=== PATIENT | female | born 1990 | race Caucasian/White ===

== ENCOUNTER 2024-09-10 16:13 | Observation (INO) | payer OTHER, SELFPAY ==
--- NOTE | ~2024-09-10 | US_ITS ---
EXAMINATION: US pelvic complete DATE: 09/10/2024 17:18 INDICATION: Low abdominal pain. TECHNIQUE: Multiple transabdominal and transvaginal sonographic images of the pelvis were obtained. COMPARISON: Ultrasound 08/19/2024 FINDINGS: TRANSABDOMINAL ULTRASOUND: The uterus measures 10.2 x 5.2 x 6.4 cm. TRANSVAGINAL ULTRASOUND: The endometrial complex measures 3.1 cm in thickness with internal vascular flow. There is thickening of the endocervical canal. The right ovary measures 2.7 x 3.2 x 2.1 cm. The left ovary measures 4.9 x 2.5 x 2.3 cm. There is normal vascular flow in the ovaries. There is no fr ee fluid in the pelvis. IMPRESSION: 1. Retained products of conception. Reviewed, dictated and finalized at location A. KEEPING MACHINE MECHANIC
--- NOTE | ~2024-09-10 | CT_ITS ---
EXAMINATION: CT abdomen pelvis w con DATE: 09/10/2024 23:50 INDICATION: lower abdominal pain, s/p 2 weeks miscarriage TECHNIQUE: Computed tomography (CT) of the abdomen and pelvis was performed with 100 mL Omnipaque-350 intravenous contrast. Automated exposure control and iterative reconstruction technique were employe d. The dose-length product was 1169.55 mGy-cm. COMPARISON: Pelvic ultrasound, same date; CT abdomen pelvis 09/11/2018. FINDINGS: Lower thorax: Dependent atelectasis. Liver: Subcentimeter right and left lobe hypodensity too small to characterize but most likely repres ent cysts or hemangiomas. Biliary/Gallbladder: Gallbladder is normal. No bile duct dilation. Pancreas: No mass or duct dilation. Spleen: Normal. Adrenals:No mass. Kidneys: No suspicious mass, obstructing stone, or hydronephrosis. GI tract: Mild distal esophageal and antral wall edema No small or large bowel dilation. Normal appen awa. Mesentery/Peritoneum: No ascites, mass, or free air. Retroperitoneum: No mass. Pelvis: Enlarged uterus. Distended endometrial cavity which contains slightly hyperdense nonenhancing fluid fluid (HU 40-50), with irregular hyperdense material measuring 2.3 x 4.6 cm, which may represe nt hypervascular tissue or extravasated contrast. Soft Tissues: Soft tissues and body wall unremarkable. Bones: No acute osseous finding. IMPRESSION: Mild esophagitis and antral gastritis. In concert with prior sonographic findings, there are likely retained products of conception, with ol d blood/clot in the endometrial cavity. Active hemorrhage is difficult to exclude, but considered les s likely if there is no clinical evidence of vaginal bleeding. Reviewed, dictated and finalized at location K. SIVE SPRAYER IMPRESSION: Mild esophagitis and antral gastritis. In concert with prior sonographic findings, there are likely retained products of conception, with old blood/clot in the endometrial cavity. Active hemorrhage is difficult to exclude, but considered less likely if there is no clinical ev idence of vaginal bleeding.
[2024-09-10 16:21] VITALS: BP 145/75; PULSE 102; RESP 20; TEMP 37; O2SAT 100
[2024-09-10 16:23] VITALS: PULSE 98
--- NOTE | 2024-09-10 16:23 | ED_ITS ---
HPI - Female Genitourinary General Chief complaint: Vaginal Bleeding <David Marie PA-C - Last Filed: 09/10/24 17:18> Stated complaint: miscarriage, heavy vaginal bleeding <David Marie PA-C - Last Filed: 09/10/24 17:18> Time Seen by Provider: 09/11/24 00:19 <David Marie PA-C - Last Filed: 09/10/24 17:18> Focused HPI: This is a 34-year-old female who presents to the ED for chief complaint of vaginal bleeding and abdominal cramping. She was diagnosed with miscarriage in early August by OB office, Dr. Reed. She was started on vaginal Cytotec. States that since 08/26/2024, she has had intermittent abdominal cramping and intermittent bleeding. Over the last couple of days she has had increased vaginal bleeding with clots. Denies fevers, chills, purulent vaginal discharge, vomiting, diarrhea. GENERAL: Well-appearing, well-nourished, and in no acute distress. HEAD: Normocephalic, atraumatic. CHEST: Clear to auscultation. No respiratory distress. HEART: Regular rate and rhythm. NEURO: Alert and oriented x3. Patient screened in triage and initial orders placed. Additional care and disposition to be based upon diagnostic testing and treatment. <David Marie PA-C - Last Filed: 09/10/24 17:18> Source: patient <David Marie PA-C - Last Filed: 09/10/24 17:18> Mode of arrival: ambulatory <David Marie PA-C - Last Filed: 09/10/24 17:18> Limitations: no limitations <AIDEN Poe Last Filed: 09/10/24 17:18> Related Data Home medications: Home Medications ?Medication ?Instructions ?Recorded ?Confirmed ?Last Taken ?Type cetirizine 10 mg tablet 10 mg PO DAILY 09/11/24 09/11/24 Unknown History fluticasone propionate 50 1 spray intranasal DAILY 09/11/24 09/11/24 Unknown History mcg/actuation nasal spray,suspension hydroxyzine HCl 25 mg tablet 25 mg PO Q8H PRN anxiety 09/11/24 09/11/24 Unknown History omeprazole 40 mg capsule,delayed 40 mg PO DAILY 09/11/24 09/11/24 Unknown History release sertraline 50 mg tablet 50 mg PO DAILY 09/11/24 09/11/24 Unknown History <David Marie PA-C - Last Filed: 09/10/24 17:18> Allergies/Adverse reactions: Allergies Allergy/AdvReac Type Severity Reaction Status Date / Time NKA Allergy Unknown Unknown Uncoded 09/10/24 16:17 <David Marie PA-C - Last Filed: 09/10/24 17:18> Review of Systems 2 Review of Systems: All systems reviewed & are unremarkable except as noted in HPI and below <Jessica Johnson APRN - Last Filed: 09/11/24 03:31> [facility] Social History Social History: Social History Smoking status: Never smoker Alcohol intake: never Substance use: never Do You Feel Safe in your Home?: Yes Lack of Transportation: No Lack of Food: Never True Current Housing: I Have Housing Concerned About Future Housing: No Difficulty Paying Gas/Electric Bills: No Difficulty Paying for Meds: No Currently Unemployed: No Education: Bachelor's Degree Difficulty w/ Childcare or Family Care: No Spiritual care concerns: No <David Marie PA-C - Last Filed: 09/10/24 17:18> Exam 2 Narrative: GENERAL: Well appearing, well-nourished, non-toxic, in no acute distress. HEAD: Normocephalic, atraumatic. NECK: Supple. No adenopathy, no masses. RESPIRATORY: Airway patent, respirations nonlabored. Clear to auscultation bilaterally, no rales, rhonchi, wheezing. CARDIOVASCULAR: Regular rate and rhythm without murmurs, rubs, or gallops. Peripheral pulses 2+ and equal bilaterally. ABDOMINAL: Soft, nontender, nondistended, no hepatosplenomegaly. Normoactive BS. MUSCULOSKELETAL: Moves all extremities. Strength/ROM intact without gross deformities. SKIN: Warm, dry, pallor. No rashes. NEURO: A&O X3. Speech clear. Cranial nerves II-XII grossly intact. Steady gait. No ataxic movements. PSYCHIATRIC: Appropriate mood and affect. Normal interaction. *: Upon vaginal speculum exam pt's vaginal canal has a large amount of pooling blood. <Jessica Johnson APRN - Last Filed: 09/11/24 03:31> Course CHIEF SECURITY OFFICER/PA Physician Supervision For this patient encounter, I reviewed the CHIEF SECURITY OFFICER or PA documentation, treatment plan, and medical decision making; and I had [id number] time with this patient. <Davis Gongora MD - Last Filed: 09/11/24 06:51> Vital Signs Vital signs: Vital Signs Temperature 98.6 F 09/10/24 16:21 Pulse Rate 102 H 09/10/24 16:21 Respiratory Rate 20 09/10/24 16:21 Blood Pressure 145/75 H 09/10/24 16:21 Pulse Oximetry 100 09/10/24 16:21 Oxygen Delivery Room Air 09/10/24 16:21 Temperature 98 F 09/11/24 05:36 Pulse Rate 75 09/11/24 05:36 Respiratory Rate 18 09/11/24 05:36 Blood Pressure 108/55 L 09/11/24 05:36 Pulse Oximetry 100 09/11/24 05:36 Oxygen Delivery Room Air 09/11/24 05:20 <David Marie PA-C - Last Filed: 09/10/24 17:18> Vital Signs Temperature 98.6 F 09/10/24 16:21 Pulse Rate 102 H 09/10/24 16:21 Respiratory Rate 20 09/10/24 16:21 Blood Pressure 145/75 H 09/10/24 16:21 Pulse Oximetry 100 09/10/24 16:21 Oxygen Delivery Room Air 09/10/24 16:21 Temperature 98 F 09/11/24 05:36 Pulse Rate 75 09/11/24 05:36 Respiratory Rate 18 09/11/24 05:36 Blood Pressure 108/55 L 09/11/24 05:36 Pulse Oximetry 100 09/11/24 05:36 Oxygen Delivery Room Air 09/11/24 05:20 <Davis Gongora MD - Last Filed: 09/11/24 06:51> Vital Signs Temperature 98.6 F 09/10/24 16:21 Pulse Rate 102 H 09/10/24 16:21 Respiratory Rate 20 09/10/24 16:21 Blood Pressure 145/75 H 09/10/24 16:21 Pulse Oximetry 100 09/10/24 16:21 Oxygen Delivery Room Air 09/10/24 16:21 Temperature 98 F 09/11/24 05:36 Pulse Rate 75 09/11/24 05:36 Respiratory Rate 18 09/11/24 05:36 Blood Pressure 108/55 L 09/11/24 05:36 Pulse Oximetry 100 09/11/24 05:36 Oxygen Delivery Room Air 09/11/24 05:20 <Jessica Johnson, ASSISTANT PROSECUTING ATTORNEY - Last Filed: 09/11/24 03:31> MDM - Female Genitourinary MDM Narrative Medical decision making narrative: This is a 34-year-old female who presents to the ED for chief complaint of vaginal bleeding and abdominal cramping. She was diagnosed with miscarriage in early August by OB office, Dr. Reed. She was started on vaginal Cytotec. States that since 08/26/2024, she has had intermittent abdominal cramping and intermittent bleeding. Over the last couple of days she has had increased vaginal bleeding with clots. Denies fevers, chills, purulent vaginal discharge, vomiting, diarrhea. Labs Ordered: CBC, CMP, CRP, Rh immune globulin, APTT, INR, lactic acid Imaging Ordered: pelvic ultrasound complete, CT abdomen pelvis with con Medications Ordered: 1 L normal saline IV bolus, Cytotec buccal 800 mcgs Results: Pt's pelvic US indicates Retained products of conception. Her CT abdomen/pelvis scan indicates Mild esophagitis and antral gastritis. In concert with prior sonographic findings, there are likely retained products of conception, with old blood clot in the endometrial cavity. Active hemorrhage is difficult to exclude, but considered less likely if there is no clinical evidence of vaginal bleeding. Diagnosis: vaginal bleeding, retained products of conception Consults: OBGYN (Dr. Reed) who advised pt be admitted to the hospital under observation status. Spoke with ACCOUNTS RECEIVABLE COLLECTOR floor who reported pt could be admitted under Dr. Reed's name. Dr. Reed requests pt have a repeat CBC be drawn in the morning. Pt is requesting nurses do a pad count. She would like pt to remain NPO, but would like her to receive Normal Saline 125/hour. Dr. Reed would also like pt to be given Cytotec 800mcg buccal x 1. Patient Education/Shared MDM: Results of labwork shared with patient. Provided results to pt that she would be admitted over night for monitoring and further evaluation in the morning. Pt verbalized understanding and is in agreement with plan. <Jessica Johnson APRN - Last Filed: 09/11/24 03:31> Differential Diagnosis Differential diagnosis: Likely urinary tract infection, cystitis, dysmenorrhea and other (threatened , retained products of conception, abnormal vaginal bleeding) <Jessica Johnson APRN - Last Filed: 09/11/24 03:31> Lab Data Attestation: I reviewed the patient's lab results. <Jessica Johnson APRN - Last Filed: 09/11/24 03:31> Result diagrams: 09/10/24 21:40 09/10/24 21:40 <David Marie PA-C - Last Filed: 09/10/24 17:18> Labs: Lab Results 09/10/24 09/11/24 Range/Units 21:40 00:34 WBC 8.1 (4.5-10.0) K/mm3 RBC 4.11 L (4.2-5.4) M/mm3 Hgb 11.7 L (12.0-15.0) g/dL Hct 35.1 L (37.0-47.0) % MCV 85.4 (80-100) fl MCH 28.5 (26-34) pg MCHC 33.3 (32-36) g/dl RDW 13.6 (11.5-14.5) % Plt Count 200 (150-375) k/mm3 MPV 9.9 (7.4-10.4) fl Immature Gran % (Auto) 0.2 (0-0.5) % Neut % (Auto) 64.2 (45.5-73.1) % Lymph % (Auto) 26.1 (18.3-44.2) % [place] % (Auto) 7.0 (2.6-8.5) % Eos % (Auto) 2.0 (0-4.4) % Baso % (Auto) 0.5 (0.2-1.2) % Lymph # (Auto) 2.12 (0.9-3.2) K/mm3 [place] # (Auto) 0.6 (0.1-0.6) K/mm3 Eos # (Auto) 0.2 (0-0.3) K/mm3 Baso # (Auto) 0.0 (0.0-0.1) K/mm3 Abs Immat Gran (auto) 0.02 (0.00-0.031) K/mm3 Absolute Neuts (auto) 5.2 (1.3-6.7) K/mm3 Absolute Nucleated RBC 0.000 (0.0-0.012) K/mm3 Nucleated RBC % 0.0 (0.0-0.2) % PT 14.5 (11.1-14.7) Seconds INR 1.1 APTT 31.9 (22.3-36.8) Seconds Sodium 139 (137-145) mmol/L Potassium 3.9 (3.4-5.0) mmol/L Chloride 105 (98-107) mmol/L Carbon Dioxide 22 (22-30) mmol/L Anion Gap 12 (4-12) mmol/L BUN 10 (7-17) mg/dL Creatinine 0.55 L (0.7-1.0) mg/dL Estim Creat Clear Calc 153 ml/min Estimated GFR > 60 (59 - ) Glucose 96 (65-110) mg/dL Lactic Acid 0.9 (0.7-2.0) mmol/L Calcium 9.2 (8.4-10.2) mg/dL Total Bilirubin 0.7 (0.2-1.3) mg/dL AST 20 (14-36) U/L ALT 13 (6-35) U/L Alkaline Phosphatase 45 (38-126) U/L C-Reactive Protein 2.1 H (<1.0) mg/dL Total Protein 8.0 (6.3-8.2) g/dL Albumin 4.7 (3.5-5.1) g/dL Urine Color Yellow (Yellow) Urine Appearance Clear (Clear) Urine pH 5.0 (5.0-9.0) Ur Specific [place] > 1.045 H (1.001-1.035) Urine Protein 1+ H (Negative) mg/dL Urine Glucose (UA) Negative (Negative) mg/dL Urine Ketones Trace H (Negative) mg/dL Ur Blood (Man) 3+ H (Negative) Urine Nitrate Negative (Negative) Urine Bilirubin Negative (Negative) Urine Urobilinogen 1.0 (<2.0) mg/dL Leukocyte Esterase Rfl Negative (Negative) GENEVIEVE/UL Urine RBC 11-20 H (0-2) /hpf Urine WBC 0-5 (0-3) /hpf Ur Squamous Epith Cells Few (Few) /hpf Urine Bacteria 1+ /hpf Urine Casts ---- Blood Type O Negative Antibody Screen Negative Screen Not Reportable Baby's Blood Type Not Reportable Baby's NIKIA Not Reportable Doses of RhIg Required 1 <David Marie PA-C - Last Filed: 09/10/24 17:18> Lab Results 09/10/24 09/11/24 Range/Units 21:40 00:34 WBC 8.1 (4.5-10.0) K/mm3 RBC 4.11 L (4.2-5.4) M/mm3 Hgb 11.7 L (12.0-15.0) g/dL Hct 35.1 L (37.0-47.0) % MCV 85.4 (80-100) fl MCH 28.5 (26-34) pg MCHC 33.3 (32-36) g/dl RDW 13.6 (11.5-14.5) % Plt Count 200 (150-375) k/mm3 MPV 9.9 (7.4-10.4) fl Immature Gran % (Auto) 0.2 (0-0.5) % Neut % (Auto) 64.2 (45.5-73.1) % Lymph % (Auto) 26.1 (18.3-44.2) % [place] % (Auto) 7.0 (2.6-8.5) % Eos % (Auto) 2.0 (0-4.4) % Baso % (Auto) 0.5 (0.2-1.2) % Lymph # (Auto) 2.12 (0.9-3.2) K/mm3 [place] # (Auto) 0.6 (0.1-0.6) K/mm3 Eos # (Auto) 0.2 (0-0.3) K/mm3 Baso # (Auto) 0.0 (0.0-0.1) K/mm3 Abs Immat Gran (auto) 0.02 (0.00-0.031) K/mm3 Absolute Neuts (auto) 5.2 (1.3-6.7) K/mm3 Absolute Nucleated RBC 0.000 (0.0-0.012) K/mm3 Nucleated RBC % 0.0 (0.0-0.2) % PT 14.5 (11.1-14.7) Seconds INR 1.1 APTT 31.9 (22.3-36.8) Seconds Sodium 139 (137-145) mmol/L Potassium 3.9 (3.4-5.0) mmol/L Chloride 105 (98-107) mmol/L Carbon Dioxide 22 (22-30) mmol/L Anion Gap 12 (4-12) mmol/L BUN 10 (7-17) mg/dL Creatinine 0.55 L (0.7-1.0) mg/dL Estim Creat Clear Calc 153 ml/min Estimated GFR > 60 (59 - ) Glucose 96 (65-110) mg/dL Lactic Acid 0.9 (0.7-2.0) mmol/L Calcium 9.2 (8.4-10.2) mg/dL Total Bilirubin 0.7 (0.2-1.3) mg/dL AST 20 (14-36) U/L ALT 13 (6-35) U/L Alkaline Phosphatase 45 (38-126) U/L C-Reactive Protein 2.1 H (<1.0) mg/dL Total Protein 8.0 (6.3-8.2) g/dL Albumin 4.7 (3.5-5.1) g/dL Urine Color Yellow (Yellow) Urine Appearance Clear (Clear) Urine pH 5.0 (5.0-9.0) Ur Specific [place] > 1.045 H (1.001-1.035) Urine Protein 1+ H (Negative) mg/dL Urine Glucose (UA) Negative (Negative) mg/dL Urine Ketones Trace H (Negative) mg/dL Ur Blood (Man) 3+ H (Negative) Urine Nitrate Negative (Negative) Urine Bilirubin Negative (Negative) Urine Urobilinogen 1.0 (<2.0) mg/dL Leukocyte Esterase Rfl Negative (Negative) GENEVIEVE/UL Urine RBC 11-20 H (0-2) /hpf Urine WBC 0-5 (0-3) /hpf Ur Squamous Epith Cells Few (Few) /hpf Urine Bacteria 1+ /hpf Urine Casts ---- Blood Type O Negative Antibody Screen Negative Screen Not Reportable Baby's Blood Type Not Reportable Baby's NIKIA Not Reportable Doses of RhIg Required 1 <Davis Gongora MD - Last Filed: 09/11/24 06:51> Lab Results 09/10/24 09/11/24 Range/Units 21:40 00:34 WBC 8.1 (4.5-10.0) K/mm3 RBC 4.11 L (4.2-5.4) M/mm3 Hgb 11.7 L (12.0-15.0) g/dL Hct 35.1 L (37.0-47.0) % MCV 85.4 (80-100) fl MCH 28.5 (26-34) pg MCHC 33.3 (32-36) g/dl RDW 13.6 (11.5-14.5) % Plt Count 200 (150-375) k/mm3 MPV 9.9 (7.4-10.4) fl Immature Gran % (Auto) 0.2 (0-0.5) % Neut % (Auto) 64.2 (45.5-73.1) % Lymph % (Auto) 26.1 (18.3-44.2) % [place] % (Auto) 7.0 (2.6-8.5) % Eos % (Auto) 2.0 (0-4.4) % Baso % (Auto) 0.5 (0.2-1.2) % Lymph # (Auto) 2.12 (0.9-3.2) K/mm3 [place] # (Auto) 0.6 (0.1-0.6) K/mm3 Eos # (Auto) 0.2 (0-0.3) K/mm3 Baso # (Auto) 0.0 (0.0-0.1) K/mm3 Abs Immat Gran (auto) 0.02 (0.00-0.031) K/mm3 Absolute Neuts (auto) 5.2 (1.3-6.7) K/mm3 Absolute Nucleated RBC 0.000 (0.0-0.012) K/mm3 Nucleated RBC % 0.0 (0.0-0.2) % PT 14.5 (11.1-14.7) Seconds INR 1.1 APTT 31.9 (22.3-36.8) Seconds Sodium 139 (137-145) mmol/L Potassium 3.9 (3.4-5.0) mmol/L Chloride 105 (98-107) mmol/L Carbon Dioxide 22 (22-30) mmol/L Anion Gap 12 (4-12) mmol/L BUN 10 (7-17) mg/dL Creatinine 0.55 L (0.7-1.0) mg/dL Estim Creat Clear Calc 153 ml/min Estimated GFR > 60 (59 - ) Glucose 96 (65-110) mg/dL Lactic Acid 0.9 (0.7-2.0) mmol/L Calcium 9.2 (8.4-10.2) mg/dL Total Bilirubin 0.7 (0.2-1.3) mg/dL AST 20 (14-36) U/L ALT 13 (6-35) U/L Alkaline Phosphatase 45 (38-126) U/L C-Reactive Protein 2.1 H (<1.0) mg/dL Total Protein 8.0 (6.3-8.2) g/dL Albumin 4.7 (3.5-5.1) g/dL Urine Color Yellow (Yellow) Urine Appearance Clear (Clear) Urine pH 5.0 (5.0-9.0) Ur Specific [place] > 1.045 H (1.001-1.035) Urine Protein 1+ H (Negative) mg/dL Urine Glucose (UA) Negative (Negative) mg/dL Urine Ketones Trace H (Negative) mg/dL Ur Blood (Man) 3+ H (Negative) Urine Nitrate Negative (Negative) Urine Bilirubin Negative (Negative) Urine Urobilinogen 1.0 (<2.0) mg/dL Leukocyte Esterase Rfl Negative (Negative) GENEVIEVE/UL Urine RBC 11-20 H (0-2) /hpf Urine WBC 0-5 (0-3) /hpf Ur Squamous Epith Cells Few (Few) /hpf Urine Bacteria 1+ /hpf Urine Casts ---- Blood Type O Negative Antibody Screen Negative Screen Not Reportable Baby's Blood Type Not Reportable Baby's NIKIA Not Reportable Doses of RhIg Required 1 <Jessica Johnson, ASSISTANT PROSECUTING ATTORNEY - Last Filed: 09/11/24 03:31> Imaging Data Attestation: I personally reviewed and interpreted this imaging study as follows: < Jessica Johnson, JONA - Last Filed: 09/11/24 03:31> Radiologist's impression: Impressions Pelvis Ultrasound 09/10/24 17:19 IMPRESSION: 1. Retained products of conception. Abdomen/Pelvis CT 09/10/24 23:53 IMPRESSION: Mild esophagitis and antral gastritis. In concert with prior sonographic findings, there are likely retained products of conception, with old blood/clot in the endometrial cavity. Active hemorrhage is difficult to exclude, but considered less likely if there is no clinical evidence of vaginal bleeding. <Jessica Johnson, JONA - Last Filed: 09/11/24 03:31> Discharge Plan Discharge Clinical Impression: Vaginal bleeding, Incomplete , Retained products of conception <David Marie PA-C - Last Filed: 09/10/24 17:18> Patient Disposition: Still a Patient <David Marie PA-C - Last Filed: 09/10/24 17:18> Condition: Stable <David Marie PA-C - Last Filed: 09/10/24 17:18>
--- OUTSIDE RECORDS SUMMARY | 2024-09-10 18:34 | XMS_ITS ---
Author Organization [facility] Address [address] [place] [address] Care Team Providers Care Inspector Precision Assembly Name Role Phone Vidhi Frias Primary Care Provider Ramez Martinez Unavailable [phone] ZZ-Migration, Provider Unavailable Unavailab le [facility] Conversion Encounter Medications Medication SIG (Take, Route, Frequency, Duration) Notes Start Date End Date Status Triamcinolone Acetonide 0.1 % 1 cory applied topically twice a day for 30 day(s) Active Zoloft 50 MG 1 [...] 1250 MCG 1 CAP(S) ORALLY ONCE A WEEK for 60 DAYS *Please review and pick correct strength-formula tion from Medispan options. 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 L23.5 Assessments Encounter Date Diagnosis (ICD Code) Assessment Notes Treatment Notes Treatment Clinical Notes Section Notes 12/30/2023 Allergic contact dermatitis due to other chemical products (ICD-10 - L23.5) Plan Of Treatment Medication Medication Name Sig Start Date Stop Date Notes Triamcinolone Acetonide 0.1 % 1 cory applied topically twice a day for 30 day(s) Zoloft 50 MG 1 tab(s) [...] day (at bedtime) Progress Notes * Karishma OCAMOPDOB:[birth year] (34 yo F)Acc No.[id number]:12/30/2023 Patient: Karishma HARRY Provider: Piotr Black :1990 A ge:33 Y S ex:Female Date:12/30/2023 Address:[address] [place] [address] Georgi LOPEZ [id number] Pcp:Vidhi Frias Subjective: * Chief Complaints: * 1 . Multum To Medispan Conversion Encounter. * Medical History: * Medications: N ot-Taking/PRN Vitamin D3 1250 MCG CAPSULE 1 CAP(S) ORALLY ONCE A WEEK , Notes to Pharmacist: *Please review and pick correct strength-formulation from AppTapspan options. If intended option is not shown, [...] *Please review and pick correct strength-formulation from AppTapspan options. If intended option is not shown, discontinue and re-order from Quick Search*; C ontinue Melatonin Tablet, 5 MG, 1 tab(s), orally, once a day (at bedtime); C ontinue Mirena (52 MG) DEVICE, 52 MG, 1 EA, BY INTRAUTERINE ADMINISTRATION, ONCE, Notes to Pharmacist: *Please review and pick correct strength-formulation from AppTapspan options. If intended option is not shown, [...] * Electronic signature of Khanh KNOWLES-Migration on 09/10/2024 at 06:33 PM VOLUNTEER SERVICES SPECIALIST Sign off status: Pending * Provider: Piotr braden Migration Date: 0 12/30/2023 Generated for Ericka raman/Shaista/Andreea on: 0 09/10/2024 06:33 PM VOLUNTEER SERVICES SPECIALIST
--- OUTSIDE RECORDS SUMMARY | 2024-09-10 18:34 | XMS_ITS | Referral Summary ---
Author Organization [facility] Virtual Care Address [address] [place] [phone] Phone Care Team Providers Care Certified Scrum Master Name Role Phone Vidhi Frias MD Primary Care Provi natasha Encounters Date Type Department Care Team Description 06/26/2024 Telephone [facility] Gastroenterology at [address] [place] [address] Makenzie Jeffrey 06/19/2024 8:45 AM BOREMATIC OPERATOR Office Visit [facility] E[facility] - [address] [place] [address] Candace Vazquez DO Chronic maxillary sinusitis (Primary Dx); Non-seasonal allergic rhinitis due to pollen; Chronic sinusitis, unspecified location from Last 3 Months Allergies No known active allergies Medications PNV no.95/ferrous fum/folic ac ( ORAL) Take by mouth Active melatonin 5 mg tablet As needed Active famotidine-Ca carb-mag hydrox (PEPCID COMPLETE) [phone] mg chewable tablet Take 1 tablet by mouth daily as needed for heartburn Active acetaminophen (TYLENOL) 500 mg tablet Take 1 tablet (500 mg total) by mouth every 6 (six) hours as needed for pain Active cetirizine (ZyrTEC) 10 mg tablet Take 1 tablet (10 mg total) by mouth daily Active cholecalcifero l (VITAMIN D-3) 400 unit capsule 09/28/19 Active triamcinolone (KENALOG) 0.1 % ointment 02/11/20 22 Active tiZANidine (ZANAFLEX) 2 mg tablet TAKE 1 TABLET AT BEDTIME NEEDED FOR NECK PAIN 90 tablet 3 12/16/19 23 Active sertraline (ZOLOFT) 50 mg tabletIndicati ons:Generalize d anxiety disorder Take 1 tablet (50 mg total) by mouth daily 90 tablet 1 06/05/20 24 Active hydrOXYzine (ATARAX) 25 mg tablet TAKE 1 TABLET EVERY 8 HOURS NEEDED FOR ANXIETY 90 tablet 06/06/20 24 Active cetirizine (ZyrTEC) 10 mg tabletIndicati ons:Non-season al allergic rhinitis due to pollen Take 1 tablet (10 mg total) by mouth daily 30 tablet 11 06/19/20 24 025 Active fluticasone propionate (FLONASE) 50 mcg/actuation nasal sprayIndicatio ns:Sinus congestion USE 2 SPRAYS IN EACH NOSTRIL DAILY 16 g 11 08/30/19 25 Active omeprazole (PriLOSEC) 40 mg capsuleIndicat ions:Abdominal pain, generalized,Na usea TAKE 1 CAPSULE DAILY 90 capsule 08/30/19 25 Active fluticasone propionate (FLONASE) 50 mcg/actuation nasal sprayIndicatio ns:Sinus congestion Administer 2 sprays into each nostril daily 16 g 11 08/02/19 24 025 Discontinued omeprazole (PriLOSEC) 40 mg capsuleIndicat ions:Abdominal pain, generalized,Na usea Take 1 capsule (40 mg total) by mouth daily 90 capsule 06/05/20 24 025 Discontinued Active Problems Problem Noted Date Diagnosed Date Gastroesophageal reflux disease 06/26/2024 Non-seasonal allergic rhinitis due to pollen 10/2023 Assessment & Plan (06/19/2024 9:11 AM BOREMATIC OPERATOR): Continue Nasal saline spray (Simply saline, Little Remedies, [place], [place]) 2 second sprays or 2 squeezes into each nostril while looking down over the sink, do not need to sniff in. Followed by Flonase 2 sprays into each nostril while looking down over the sink, do not sniff in or blow nose after use for at least 30 minutes 1-2 times daily Start Cetirizine 10 mg daily Cefdinir with a meal twice daily for at least 10 days Before SCUBA for 1-2 weeks prior start Flonase twice daily and may take either Ibuprofen or Sudafed 30-60 minutes before a dive Chronic maxillary sinusitis 05/24/2023 Assessment & Plan (06/19/2024 9:11 AM BOREMATIC OPERATOR): Continue Nasal saline spray (Simply saline, Little Remedies, [place], [place]) 2 second sprays or 2 squeezes into each nostril while looking down over the sink, do not need to sniff in. Followed by Flonase 2 sprays into each nostril while looking down over the sink, do not sniff in or blow nose after use for at least 30 minutes 1-2 times daily Start Cetirizine 10 mg daily Cefdinir with a meal twice daily for at least 10 days Before SCUBA for 1-2 weeks prior start Flonase twice daily and may take either Ibuprofen or Sudafed 30-60 minutes before a dive Assessment & Plan (05/24/2023 10:18 AM BOREMATIC OPERATOR): Continue nasal saline Followed by Flonase CT sinus - call with results Sinus congestion 09/15/2022 Assessment & Plan (09/21/2023 11:03 AM BOREMATIC OPERATOR): She is following with ENT for her sinuses and continues to use Flonase 2 puffs in each nostril at bedtime. Assessment & Plan (01/25/2023 12:22 PM CDT): Nasal saline spray (Simply saline, Little Remedies, [place], [place]) 2 second sprays or 2 squeezes into each nostril while looking down over the sink, do not need to sniff in. Flonase 2 sprays into each nostril while looking down over the sink, do not sniff in or blow nose after use for at least 30 minutes daily Doxycycline twice daily for 21 days, avoid sun exposure while on this medication Rescope at follow up for left OMC, consider CT sinus if no improvement Personal interpretation of the CT Sinus, Left more right ethmoid mucosal thicking with OMC obstruction with mucosal inflammation on the left, Left frontal sinus recess obstruction and mucosal thickening. Bilateral moderate conch bullosa, inferior turbinate hypertrophy bilaterally Assessment & Plan (09/15/2022 12:12 PM BOREMATIC OPERATOR): I have encouraged the patient to continue with the allergy medicines on a daily basis. I have ordered Flonase. I have ordered a sinus CT without contrast. Patient will continue with saline rinses I have also referred the patient back to ENT. Obstructive sleep apnea 10/26/2021 Assessment & Plan (09/21/2023 11:02 AM BOREMATIC OPERATOR): The patient continues to benefit from the auto titrating CPAP unit with a range of 5-11 cm water pressure. Her DME supplier is [employer]. She will follow up here in 1 year after returning from her appointment. Assessment & Plan (09/15/2022 12:12 PM BOREMATIC OPERATOR): Due to the sinus cavities feeling full and swollen, I have decreased the pressure setting to 5-13 cm water pressure. DME [employer]. I have also ordered a full set of supplies. Assessment & Plan (03/17/2022 11:30 AM CDT): Due to the patient stating that her nose is drying out getting nosebleeds, I have decreased the pressure to 5-13 cm water pressure. DME [employer]. The patient and I also discussed [id number] products for dry nasal cavities. Assessment & Plan (10/26/2021 11:09 AM CDT): Different options were discussed for treatment of sleep apnea. The patient states she would like to try the auto titrating CPAP set at a range of 5-15 cm water pressure. Her DME will be [employer]. I have sent an order over to [employer] for an auto titrating CPAP set at a range of 5-15 cm water pressure. The patient was informed not to drive if she does feel too sleepy. The patient verbalized understanding. 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 Stable. Continue sertraline 50 mg daily Assessment & Plan (05/18/2021 7:56 AM CDT): Stable Continue current regimen zoloft regimen Continue atarax As needed Continue healthy changes for her mood Call for questions or concerns Assessment & Plan (02/02/2021 4:54 PM CDT): Mood worse, but mostly related to the inspection coming up Continue Zoloft, but ideally at 50 mg daily Continue healthy changes for her mood Update me if her symptoms change or worsen Send me a message next week to let me know how she is doing Call for questions Hyperbilirubinemia 03/12/2019 Class 1 obesity without seri ous comorbidity with body mass index (BMI) of 34.0 to 34.9 in adult 02/28/2019 Assessment & Plan (06/05/2024 8:40 AM BOREMATIC OPERATOR): BMI Follow-up includes: education provided. Emiliea 02/28/2019 Anxiety disorder 02/12/2019 Assessment & Plan (06/05/2024 8:40 AM BOREMATIC OPERATOR): Chronic. Stable. Continue sertraline 50 mg daily Assessment & Plan (05/18/2021 7:56 AM CDT): Stable Continue current regimen zoloft regimen Continue atarax As needed Continue healthy changes for her mood Call for questions or concerns Assessment & Plan (02/02/2021 4:54 PM CDT): I do want her to check her dose of Zoloft at home, she should be on 50 mg daily Continue Atarax as needed Given the acutely stressful situation, we will not adjust her medicines right now, but I do want her to update me next week after her inspection Continue healthy changes for her mood Update me with any changes or if anything worsens Call for questions Assessment & Plan (12/15/2020 8:40 AM CDT): Patient reiterated no suicidal thoughts at this time; contact 911 and go to the ER if becomes suicidal Continue 25 mg of zoloft during travel Will increase to 50 mg daily once she returns Will have her use atarax as needed for anxiety Stop buspar take medication as directed discussed side effects of medication with patient encouraged healthy diet and exercise encouraged patient to see a counselor use support structures you have in place consider meditation-look at Calm cory try to work on healthy sleep habits If mood worsens or changes, please contact the office Anything emergent, to the er Chronic neck pain 02/12/2019 Assessment & Plan (12/15/2020 8:46 AM CDT): Will renew her tizanidine Ice/heat as needed Consider PT Will try to get her prior xray Call for questions or concerns Muscle pain 02/12/2019 Resolved Problems Problem Noted Date Diagnosed Date Resolved Date Snoring 05/18/2021 03/17/2022 Assessment & Plan (09/23/2021 8:57 AM BOREMATIC OPERATOR): The patient presents with excessive daytime hypersomnia and snoring. I have recommended proceeding with an in-lab nocturnal polysomnogram with a split night protocol if necessary and no MSLT. She will follow-up here in 3 months. Assessment & Plan (05/18/2021 7:47 AM CDT): Will sign order for home sleep test Consider in lab sleep test Update me with any changes Call for questions or concerns Immunizations Immunization Administration Dates Next Due HPV, Unspecified 07/19/2012 HPV9 09/03/2019,04/25/2019 Hep B, Unspecified 07/19/2012,01/10/2012, 012 IPV 11/18/2011 Influenza, Quadrivalent, Spl it, Preservative Free, Intramuscular 03/29/2022,04/09/2018 Influenza, Trivalent, IM (MDV) 04/14/2023 Influenza, Trivalent, Preser vative Free, Intramuscular 06/05/2024 Influenza, Unspecified 03/31/2021,2018,04/10/2018,03/25,03/26/2016,05/23/2015,05/23/2015 ,04/19/2014,04/19/2014,05/18/2013,08/2012,04/05/2012,04/05/2012, 2,11/18/2011 MMR 02/19/2017,12/17/2016 Meningococcal MCV4, Unspecified 11/18/2011 Moderna SARS-CoV-2 Monovalen t Vaccination (12+ YRS) 10/28/2020,09/30/2020 PPD TEST 10/20/2018, 6,02/04/2015,11/20 Pneumococcal Polysaccharide PPV23 01/12/2022 Td, adsorbed 12/10/2002 Tdap 11/18/2011 Typhoid, Unspecified 03/28/2015 Social History Tobacco Use Types Packs/Day Years Used Date Smoking Tobacco: Never Smokeless Tobacco: Never Tobacco Cessation:Counseling Given: Not Answered AUDIT-C Answer Date Recorded Q1: How often do you have a drink containing alc ohol? Monthly or less 06/05/2024 Q2: How many drinks containi ng alcohol do you have on a typical day when you are drinking? 1 or 2 06/05/2024 Q3: How often do you have si x or more drinks on one occasion? Never 06/05/2024 PHQ-2 Answer Date Recorded PHQ-2 Total Score (If total score is 3 or more points, staff should administer the PHQ-9) 0 06/05/2024 Comments No Sex and Gender Information Value Date Recorded Sex Assigned at Not on file Legal Sex Female 11:08 AM CDT Gender Identity Female 10/06/2021 11:30 AM CDT Sexual Orientation Straight 03/16/2022 9: 36 PM CDT Last Filed Vital Signs Vital Sign Reading Time Taken Comments Blood Pressure 118/70 06/05/2024 8:22 AM BOREMATIC OPERATOR Pulse 78 06/05/2024 8:22 AM BOREMATIC OPERATOR Temperature 36.5 C (97.7 F) 06/05/2024 8:22 AM BOREMATIC OPERATOR Respiratory Rate 16 06/05/2024 8:22 AM BOREMATIC OPERATOR Oxygen Saturation 98% 06/05/2024 8:22 AM BOREMATIC OPERATOR Inhaled Oxygen Concentration - - Weight 104.3 kg (230 lb) 06/19/2024 8:33 AM BOREMATIC OPERATOR Height 175.3 cm (5' 9.02 ) 06/19/2024 8:33 AM CS T Body Mass Index 33.95 06/19/2024 8:33 AM BOREMATIC OPERATOR Plan of Treatment Upcoming Encounters Date Type Department Care Team (Latest Contact Info) Description 10/02/2024 7:55 AM CDT Hospital Encounter [address] [id number] Hussein Smith MD [address] [place] [address] [place] [address] 10/02/2024 7:55 AM CDT - 10/02/2024 8:30 AM CDT Surgery [address] [address] Hussein Smith MD [address] [place] [address] [place] [address] ESOPHAGOGASTRODUODENOSCOPY Scheduled Procedures Name Priority Associated Diagnoses Date/Ti me ESOPHAGOGASTRODUODENOSCOPY Gastroesophageal reflux disease, unspecified whether esophagitis present 10/02/2024 7:55 AM CDT Procedures Procedure Name Priority Date/Time Associated Diagnosis Comments PAP SMEAR Routine 05/01/2020 from Last 3 Months or Most Recently Relevant to Health Maintenance Results * HM PAP SMEAR (05/01/2020) Historical Provider HEALTH MAINTENANCE Final Result from Last 3 Months or Most Recently Relevant to Health Maintenance Insurance [facility] CLAIMS Care Teams Certified Scrum Master Relationship Specialty Start Date End Date Vidhi Frias MD [address] [place] [address] PCP - General Family Medicine 11/23/20
--- OUTSIDE RECORDS SUMMARY | 2024-09-10 18:34 | XMS_ITS | Data Portability ---
Author Organization [facility] [place] Address [address] [place] [address] Care Team Providers Care Manager Inpatient Name Role Phone PAMELA GLOVER Primary Care Provider Assessment Encounter Date Assessment Date Assessment LastModified by Organization Details LastModified Time 11/28/2022 11/28/2022 Annual gynecological exam performed. Patient will come back in a year unless there are new symptoms. [email or web address] Not available 11/28/2022 13:03:19 07/08/2024 07/08/2024 Annual gynecological exam performed. Patient will come back in a year unless there are new symptoms. Not available 07/08/2024 10:28:34 Plan of Treatment Reminders Order Date Submit Date Provider Last Modified By Organization Details Last Modified Time Details Appointments None recorded. Lab CMP, serum or plasma 2023 [facility] (Lab), [address], [place], [address], 5 06:39:29 CBC w/ auto diff 2023 [facility] (Lab), [address] [place], [address], 5 06:39:28 lipid panel, blood 2023 024 [facility] (Lab), [address] [place], [address], 5 06:39:29 HbA1c (hemoglobin A1c), blood 2023 024 [facility] (Lab), [address], [place], [address], 5 06:39:30 25-hydroxyv itamin D2 + 25-hydroxyv itamin D3, QN, serum or plasma 2023 024 [facility] (Lab), [address], [place], [address], 5 06:39:30 TSH, serum or plasma 2023 024 [facility] (Lab), [address], [place], [address], 5 06:39:29 Referral None recorded. Procedures None recorded. Surgeries None recorded. Imaging None recorded. Medication Orders Cytotec 200 mcg tablet 2024 025 [facility] #[id number], [address], [place], [place], [id number], 5 09:59:20 triamcinolo ne acetonide 0.1 % topical ointment 2022 023 [email or web address] 1 [id number], [address], [place], [place], [id number], 4 10:30:36 triamcinolo ne acetonide 0.1 % topical ointment 2021 022 [email or web address] 1 [facility], [address], [place], [place], [id number], 4 10:30:36 Patient TargetsNo targets recorded. Patient InstructionsNo instructions recorded. Reason for Referral None Reported. Results Created Date Observation Date Name Description Value Unit Range Abnormal Flag Note LastModifiedBy Organization Detail LastModifiedTime 02/11/20 22 02/10/2022 VAGIN ITIS/ VAGIN OSIS, DNA PROBE shashank sp. detection, direct probe Negati ve negati ve Not Available [facility] [address] [place] [address], [phone], 02/11/2022 22:15:22 02/11/20 22 02/10/2022 VAGIN ITIS/ VAGIN OSIS, DNA PROBE gardnerella vag. detection, direct probe Negati ve negati ve Not Available [facility] [address] [place], [address], 02/11/2022 22:15:22 02/11/20 22 02/10/2022 VAGIN ITIS/ VAGIN OSIS, DNA PROBE trichomonas vag. 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 Elect abiodun hobson coral d by Cande Flores, CT on 2022 at 2:41 PM ----- ----- ----- ----- ----- ----- ----- ----- ----- ----- ----- ----- ----- ----- ----- ----- ----- ---- HPV RESUL TS: HPV mRNA E6/E7 : No HPV mRNA Detec bertin NOTE: This high risk HPV mRNA assay detec ts fourt een high- risk HPV types (16, 18, 31, 33, 35, 39, 45, 51, 52, 56, 58, 59, 66, 68) witho ut diffe renti ation . COMME NT: This speci men was revie wed by a Cytot echno logis t and/o r Patho logis t (as indic ated in this repor t) after evalu ation using the Thinp rep Imagi ng Syste m. CLINI ANALIA INFOR MATIO N: Menst rual Statu s: LMP (if appli cable ): Clini analia Histo ry/Pr eviou s Pap: Type of Neopl pavan (if appli cable ): Signi fican t Clini analia Findi ngs: Other Histo ry: Hormo renetta (if appli cable ): PAP EDUCA BENSON L NOTE: The Pap Test is a scree dalia test with an inher ent false negat isabel rate. Liqui d-bas ed sampl ing may decre ase, but will not elimi marlo, false negat isabel resul ts. A negat isabel resul t does not precl ude the prese nce and/o r devel opmen t of disea se, since the prese nce of abnor mal cells in the sampl e depen ds on the locat ion of the lesio n and sampl ing techn ique. Echo nued regul ar scree dalia is the best metho d of cance r preve ntion . If repor bertin cytol ogic findi ng do not corre late with physi analia and/o r histo rical findi ngs, fur er inves tigat ion is recom hira d, as clini fina rankin nted. Not Available [facility] (Lab) [address], [place], [address], 11/29/2022 15:45:36 08/20/1908/20/2024 CBC W/DIF F WBC 6.1 10'3/ uL 3.5-10 .5 Not Available [facility] (Lab) [address], [place], [address], 08/21/2024 06:39:28 08/20/1908/20/2024 CBC W/DIF F RBC 4.50 10'6/ uL (based on docume nted legal sex) 3.80-5 .20 Not Available [facility] (Lab) [address], [place], [address], 08/21/2024 06:39:28 08/20/1908/20/2024 CBC W/DIF F HGB 12.7 g/dL (based on docume nted legal sex) 11.6-1 5.4 Not Available [facility] (Lab) [address], [place], [address], 08/21/2024 06:39:28 08/20/1908/20/2024 CBC W/DIF F HCT 39.2 % (based on docume nted legal sex) 34.0-4 5.0 Not Available [facility] (Lab) [address], [place], [address], 08/21/2024 06:39:28 08/20/1908/20/2024 CBC W/DIF F MCV 87.1 fL 80.0-9 9.0 Not Available [facility] (Lab) [address], [place], [address], 08/21/2024 06:39:28 08/20/1908/20/2024 CBC W/DIF F MCH 28.2 pg 27.0-3 4.0 Not Available [facility] (Lab) [address], [place], [address], 08/21/2024 06:39:28 08/20/19 25 08/20/2024 CBC W/DIF F MCHC 32.4 g/dL 32.0-3 5.5 Not Available [facility] (Lab) [address], [place], [address], 08/21/2024 06:39:28 08/20/19 25 08/20/2024 CBC W/DIF F RDW 14.2 % 11.0-1 5.0 Not Available [facility] (Lab) [address], [place], [address], 08/21/2024 06:39:28 08/20/1908/20/2024 CBC W/DIF F plt 188 10'3/ uL 150-40 0 Not Available [facility] (Lab) [address], [place], [address], 08/21/2024 06:39:28 08/20/19 25 08/20/2024 CBC W/DIF F MPV 11.4 fL 8.8-12 .1 Not Available [facility] (Lab) [address], [place], [address], 08/21/2024 06:39:28 08/20/19 25 08/20/2024 CBC W/DIF F neutrophils 57.0 % 34.0-7 3.0 Not Available [facility] (Lab) [address], [place], [address], 08/21/2024 06:39:28 08/20/19 25 08/20/2024 CBC W/DIF F lymphocytes 31.5 % 15.0-5 0.0 Not Available [facility] (Lab) [address], [place], [address], 08/21/2024 06:39:28 08/20/19 25 08/20/2024 CBC W/DIF F monocytes 7.2 % 1.0-15 .0 Not Available [facility] (Lab) [address], [place], [address], 08/21/2024 06:39:28 08/20/19 25 08/20/2024 CBC W/DIF F eosinophils 3.3 % 0.0-8. 0 Not Available [facility] (Lab) [address], [place], [address], 08/21/2024 06:39:28 08/20/19 25 08/20/2024 CBC W/DIF F basophils 0.7 % 0.0-2. 0 Not Available [facility] (Lab) [address], [place], [address], 08/21/2024 06:39:28 08/20/19 25 08/20/2024 CBC W/DIF F immature granulocytes 0.3 % no define d refere nce range Immat ure Granu locyt es (IG) repre sents autom ated enume ratio n of Metam yeloc ytes, Myelo cytes and Promy elocy bronson when IG is < 5%. Blast s are not inclu ded in IG and repor bertin separ ately if prese nt. Not Available [facility] (Lab) [address], [place], [address], 08/21/2024 06:39:28 08/20/19 25 08/20/2024 CBC W/DIF F absolute neutrophils 3.5 10'3/ uL 1.5-8. 0 Not Available [facility] (Lab) [address], [place], [address], 08/21/2024 06:39:28 08/20/19 25 08/20/2024 CBC W/DIF F absolute lymphocytes 1.9 10'3/ uL 1.0-4. 0 Not Available [facility] (Lab) [address], [place], [address], 08/21/2024 06:39:28 08/20/19 25 08/20/2024 CBC W/DIF F absolute monocytes 0.4 10'3/ uL 0.2-1. 0 Not Available [facility] (Lab) [address], [place], [address], 08/21/2024 06:39:28 08/20/1908/20/2024 CBC W/DIF F absolute eosinophils 0.2 10'3/ uL 0.0-0. 6 Not Available [facility] (Lab) [address], [place], [address], 08/21/2024 06:39:28 08/20/1908/20/2024 CBC W/DIF F absolute basophils 0.0 10'3/ uL 0.0-0. 3 Not Available [facility] (Lab) [address], [place], [address], 08/21/2024 06:39:28 08/20/1908/20/2024 CBC W/DIF F absolute immature granulocytes 0.0 10'3/ uL 0.00-0 .10 Refer ence range s for nonbi nary/ inter sex or unspe cifie d gende r patie nts have not been estab lishe d. Pleas e refer to the follo wing table for range s estab lishe d for cisge nder patie nts and evalu ate in the clini analia rodney xt of the indiv idual patie nt: https ://elenita trujillo book. nm.or g/Gen derX Not Available [facility] (Lab) [address], [place], [address], 08/21/2024 06:39:28 08/20/1908/20/2024 LIPID PANEL ,AMA (LDL- CALC) total cholesterol 153 mg/dL 0-199 Not Available [facility] (Lab) [address], [place], [address], 08/21/2024 06:39:28 08/20/1908/20/2024 LIPID PANEL ,AMA (LDL- CALC) triglyceride s 96 mg/dL 0-150 NCEP Refer ence Value s for Trigl yceri madiha: Susan l: <150 mg/dL Borde rline High: 150 - 199 mg/dL High: 200 - 499 mg/dL Very High: >/= 500 mg/dL Not Available [facility] (Lab) [address] [place], [address], 08/21/2024 06:39:28 08/20/19 25 08/20/2024 LIPID PANEL ,AMA (LDL- CALC) HDL cholesterol 45 mg/dL >40 Not Available [facility] (Lab) [address] [place], [address], 08/21/2024 06:39:28 08/20/19 25 08/20/2024 LIPID PANEL ,AMA (LDL- CALC) LDL cholesterol 89 mg/dL 0-99 Cutof f value s recom hira d by the Natio nal Malena stero l Educa tion Progr am: JOHN ABLE: Malena stero l <200 mg/dL LDL <100 mg/dL BORDE RLINE : Malena stero l 200-2 39 mg/dL LDL 101-1 59 mg/dL HIGHE R RISK: Malena stero l >240 mg/dL LDL >160 mg/dL , HDL <40 mg/dL Not Available [facility] (Lab) [address] [place], [address], 08/21/2024 06:39:28 08/20/19 25 08/20/2024 LIPID PANEL ,AMA (LDL- CALC) non-HDL cholesterol 108 mg/dL no refere nce range A reaso nable goal for non-H DL malena stero l is one that is 30 mg/dL highe r than the LDL malena stero l goal. Not Available [facility] (Lab) [address] [place], [address], 08/21/2024 06:39:28 08/20/1908/20/2024 LIPID PANEL ,AMA (LDL- CALC) chol/HDL ratio 3.4 . 0.0-5. 0 On November 08, 2022, [facility] labor atori yasemin osorio ed the equat ion for calcu latin g estim ated low-d ensit y lipop rotei n-cho leste rol (LDL- C) from the Fried dennis equat ion to the Ellie n/Hop susan equat ion. This new equat ion is only valid for lipid panel s with trigl yceri madiha < 400 mg/dL . Studi es have demon strat ed that this new equat ion will impro ve the accur acy of LDL-C , espec ially in scena lorenzana when LDL-C ventura ntrat ions are relat ively low (< 100 mg/dL ), trigl yceri madiha are eleva bertin, or patie nt is non-f astin g. Refer ences : - Ellie caballero, Marvin Curtis, Jose Pimentel , Ann duke, Thaddeus Allen, Thaddeus templeton, Art varela , and Bill Monterroso . 2013. Comp ariso n of a Novel Metho d vs the Fried dennis Equat ion for Estim ating Low-D ensit y Lipop rotei n Malena stero l Level s from the Stand sheree Lipid Profi le. [place]: The Journ al of the Ameri can Medic al Assoc iatio n 310 19): 2060- . - Shannon morillo V, Martha J, Harshad morillo A, Eli M, Melchor e R, Rajni morillo E, [facility] RS, Loc SR, Ellie caballero SS. Fast ing Versu s Nonfa sting and Low-D ensit y Lipop rotei n Malena stero l Accur acy. Circu latio n. 2017Jul 18;137 (1):1 0-19. Not Available [facility] (Lab) [address] [place], [address], 08/21/2024 06:39:28 08/20/19 25 08/20/2024 CMP(C OMPRE HENSI VE METAB OLIC PANEL ) sodium 136 mmol/ L 133-14 6 Not Available [facility] (Lab) [address], [place], [address], 08/21/2024 06:39:29 08/20/19 25 08/20/2024 CMP(C OMPRE HENSI VE METAB OLIC PANEL ) potassium 4.1 mmol/ L 3.5-5. 1 Not Available [facility] (Lab) [address], [place], [address], 08/21/2024 06:39:29 08/20/19 25 08/20/2024 CMP(C OMPRE HENSI VE METAB OLIC PANEL ) chloride 100 mmol/ L 98-107 Not Available [facility] (Lab) [address], [place], [address], 08/21/2024 06:39:29 08/20/19 25 08/20/2024 CMP(C OMPRE HENSI VE METAB OLIC PANEL ) carbon dioxide 27 mmol/ L 21-31 Not Available [facility] (Lab) [address], [place], [address], 08/21/2024 06:39:29 08/20/19 25 08/20/2024 CMP(C OMPRE HENSI VE METAB OLIC PANEL ) anion gap 9 mmol/ L 4-13 Not Available [facility] (Lab) [address], [place], [address], 08/21/2024 06:39:29 08/20/19 25 08/20/2024 CMP(C OMPRE HENSI VE METAB OLIC PANEL ) blood urea nitrogen 8 mg/dL 7-25 Not Available [facility] (Lab) [address], [place], [address], 08/21/2024 06:39:29 08/20/19 25 08/20/2024 CMP(C OMPRE HENSI VE METAB OLIC PANEL ) creatinine 0.60 mg/dL 0.60-1 .30 Not Available [facility] (Lab) [address], [place], [address], 08/21/2024 06:39:29 08/20/19 25 08/20/2024 CMP(C OMPRE HENSI VE METAB OLIC PANEL ) egfrcr (CKD-epi 2020) >90 mL/mi n/1.7 3_m2 >=60 Not Available [facility] (Lab) [address], [place], [address], 08/21/2024 06:39:29 08/20/19 25 08/20/2024 CMP(C OMPRE HENSI VE METAB OLIC PANEL ) calcium 9.3 mg/dL 8.3-10 .5 Not Available [facility] (Lab) [address], [place], [address], 08/21/2024 06:39:29 08/20/19 25 08/20/2024 CMP(C OMPRE HENSI VE METAB OLIC PANEL ) glucose 77 mg/dL 70-100 Not Available [facility] (Lab) [address], [place], [address], 08/21/2024 06:39:29 08/20/19 25 08/20/2024 CMP(C OMPRE HENSI VE METAB OLIC PANEL ) protein, total 7.2 g/dL 6.4-8. 3 Not Available [facility] (Lab) [address], [place], [address], 08/21/2024 06:39:29 08/20/1908/20/2024 CMP(C OMPRE HENSI VE METAB OLIC PANEL ) albumin 4.6 g/dL 3.5-5. 0 Not Available [facility] (Lab) [address], [place], [address], 08/21/2024 06:39:29 08/20/19 25 08/20/2024 CMP(C OMPRE HENSI VE METAB OLIC PANEL ) ALT 12 units /L 9-43 Not Available [facility] (Lab) [address], [place], [address], 08/21/2024 06:39:29 08/20/19 25 08/20/2024 CMP(C OMPRE HENSI VE METAB OLIC PANEL ) alkaline phosphatase 28 units /L 34-104 low Not Available [facility] (Lab) [address], [place], [address], 08/21/2024 06:39:29 08/20/19 25 08/20/2024 CMP(C OMPRE HENSI VE METAB OLIC PANEL ) AST 10 units /L 13-39 low Not Available [facility] ([facility]) [address], [place], [address], 08/21/2024 06:39:29 08/20/19 25 08/20/2024 CMP(C OMPRE HENSI VE METAB OLIC PANEL ) bilirubin, total 1.0 mg/dL 0.2-1. 2 Not Available [facility] ([facility]) [address], [place], [address], 08/21/2024 06:39:29 08/20/19 25 08/20/2024 TSH, REFLE X FREE T4 TSH 1.13 uIU/m L 0.30-5 .33 Not Available [facility] ([facility]) [address], [place], [address], 08/21/2024 06:39:29 08/20/1908/20/2024 VITAM IN D, 25-OH (TOTA L D2/D3 ) vitamin D, 25-hydroxy, total 45.1 NG/mL 30.0-1 00.0 Sugge stive of Defic iency : <20 ng/mL Sugge stive of Insuf ficie ncy: 20-29 ng/mL Sugge stive of Suffi cienc y: 30-10 0 ng/mL Sugge stive of Toxic ity: >150 ng/mL Not Available [facility] (Lab) [address], [place], [address], 08/21/2024 06:39:30 08/20/1908/20/2024 HEMOG LOBIN A1C hemoglobin A1C 5.7 % 4.0-5. 6 high The Ameri can Diabe bronson Assoc iatio n recom mends that a prima ry goal of thera py shoul d be a HBA1C of < 7% and that physi cians annalise d reeva luate the treat ment regim en in patie nts with HBA1C value s consi stent ly > 8%. <5.7% Susan l 5.7 - 6.4% Incre ased risk for diabe bronson >=6.5 % Diagn ostic of diabe bronson <7.0% Goal of thera py >8.0% Actio n sugge sted Not Available [facility] (Lab) [address], [place], [address], 08/21/2024 06:39:30 08/19/19 25 08/19/2024 US, obste tric, trans vagin al No observ ation record ed. [email or web address] [address], [address], 08/19/2024 23:24:46 08/19/19 25 08/19/2024 US, obste tric, trans vagin al No observ ation record ed. [email or web address] [address], [place], [address], 08/19/2024 23:27:14 Result Notes None recorded. Procedures Surgical History Date Name Laterality Status Provider Name and Address Organization Details Recorded Time 07/08/20 24 Date of Last Pap Smear completed Kandis Lopez [facility] 07/08/2024 17:23:54 12/07/19 23 IUD Removal completed NAYA Christiansen- [address], [place], [address], [place] [facility] 12/06/2022 09:18:40 07/17/19 20 laser assisted in situ keratomileusis completed Kandis Lopez [facility] 11/06/2021 10:24:09 07/17/19 08 extraction of wisdom tooth completed Kandis Lopez [facility] 11/06/2021 10:24:51 07/17/19 00 Tonsillectomy completed Kandis Lopez [facility] 11/06/2021 10:24:22 07/17/18 96 myringotomy and insertion of tympanic ventilation tube completed Kandisnataliya Lopez [facility] 11/06/2021 10:25:27 07/17/18 95 myringotomy and insertion of tympanic ventilation tube [facility]21 10:25:24 Imaging Results Imaging Date Name Status LastModified by Organization Details LastModified Time 08/19/2024 US, obstetric, transvaginal completed [email or web address] [address] [place] [address], [address], 08/19/2024 23:24:46 08/19/2024 US, obstetric, transvaginal completed [email or web address] [address], [address], 08/19/2024 23:27:14 Procedure Notes None recorded. Medical Equipment None Reported. Allergies No known drug allergies Medications Name Sig Start Date Stop Date Status Note LastModified by Organization Details LastModified Time amoxicill in 500 mg capsule 12/06 completed Not Available Not Available Not Available Mirena 21 mcg/24 hr (up to 8 years) 52 mg intrauter ine device Take by intraute rine route. 12/06 completed Not Available Not Available Not Available Miralax 17 gram/dose oral powder active Not Available Not Available Not Available tizanidin e 2 mg tablet active Not Available Not Available Not Available clindamyc in HCl 300 mg capsule 11/06 completed Not Available Not Available Not Available cetirizin e 10 mg tablet active Not Available Not Available Not Available azithromy cecelia 250 mg tablet 11/06 completed Not Available Not Available Not Available ondansetr on HCl 8 mg tablet 07/08 completed Not Available Not Available Not Available phenazopy ridine 200 mg tablet 11/06 completed Not Available Not Available Not Available ondansetr on HCl 4 mg tablet 02/10 completed Not Available Not Available Not Available omeprazol e 40 mg capsule,d elayed release active Not Available Not Available Not Available acetamino phen 500 mg tablet 07/08 completed Not Available Not Available Not Available triamcino lone acetonide 0.1 % topical cream active Not Available Not Available Not Available calcium 600 mg (as calcium carbonate 1,500 mg) tablet 07/08 completed Not Available Not Available Not Available amoxicill in 875 mg tablet 11/06 completed Not Available Not Available Not Available dicyclomi ne 20 mg tablet 07/08 completed Not Available Not Available Not Available triamcino lone acetonide 0.1 % topical ointment APPLY A THIN LAYER TO THE AFFECTED AREA(S) BY TOPICAL ROUTE 2 TIMES PER DAY 07/08 completed Not Available Not Available Not Available misoprost ol [address] 4 tablets in the vagina active Not Available Not Available No t Available ibuprofen 400 mg tablet 07/08 completed Not Available Not Available Not Available gabapenti n 300 mg capsule 07/08 completed Not Available Not Available Not Available clindamyc in 2 % vaginal cream Insert 1 applicat orful every day by vaginal route at bedtime for 7 days. 02/10 completed Not Available Not Available Not Available hydroxyzi ne HCl 25 mg tablet active Not Available Not Available No t Available azelastin e 137 mcg (0.1 %) nasal spray 07/08 completed Not Available Not Available Not Available ibuprofen 600 mg tablet 07/08 completed Not Available Not Available Not Available fluocinon richie 0.05 % topical cream 11/28 completed Not Available Not Available Not Available clobetaso l 0.05 % scalp solution 11/28 completed Not Available Not Available Not Available ondansetr on 4 mg disintegr ating tablet 07/08 completed Not Available Not Available Not Available cefdinir 300 mg capsule 07/08 completed Not Available Not Available Not Available fluticaso ne propionat e 50 mcg/actua tion nasal spray,michael pension active Not Available Not Available Not Available sertralin e 50 mg tablet active Not Available Not Available Not Available metronida zole 375 mg capsule take 1 capsule by oral route every 6 hours 11/06 completed Prescrib ed Elsewher e: Yes [facility] By: harleen nobleer DateTime : 09/10/19 01:45:00 PM Not Available Not Available Not Available naproxen 500 mg tablet 11/28 completed Not Available Not Available Not Available amoxicill in 875 mg-potass ium clavulana te 125 mg tablet 07/08 completed Not Available Not Available Not Available simethico ne 80 mg chewable tablet active Not Available Not Available Not Available cyclobenz aprine 5 mg tablet take 1 tablet by oral route 3 times every day 11/06 completed Prescrib ed Elsewher e: No Locat ion: [facility]ellen georgi [facility] odify By: colleen Ríos nter DateTime : 09/13/19 02:30:00 PM Not Available Not Available Not Available ciproflox acin 0.3 %-dexamet hasone 0.1 % ear drops,michael pension 07/08 completed Not Available Not Available Not Available nitrofura ntoin monohydra te/macroc rystals 100 mg capsule 11/06 completed Not Available Not Available Not Available Zoloft 11/06 completed Not Available Not Available Not Available tizanidin e 11/06 completed Not Available Not Available Not Available Atarax 02/10 completed Not Available Not Available Not Available BuSpar 11/06 completed Not Available Not Available Not Available active Not Available Not Avai lable Not Available Oracea 40 mg capsule,i mmediate - delay release take 1 capsule by oral route every day in the morning at least 1 hour before or 2 hours after meals 11/06 completed Prescrib ed Elsewher e: Yes Loca tion: Kentrellkellen georgi [facility] odify By: harleen nobleer DateTime : 09/10/19 01:45:00 PM Not Available Not Available Not Available levocetir izine 5 mg tablet 11/06 completed Not Available Not Available Not Available Atralin 0.05 % topical gel apply by topical route every day to the affected area(s) at bedtime 09/10 completed Prescrib ed Elsewher e: Yes Loca tion: [facility] odify By: harleen hornerunter DateTime : 03/13/20 15 09:30:00 AM Not Available Not Available Not Available Cepacol Sore Throat (benzocai ne-mentho l) 15 mg-3.6 mg lozenges 07/08 completed Not Available Not Available Not Available melatonin 5 mg capsule 01/24 completed Prescrib ed Elsewher e: Yes [facility] odify By: danette nobleer DateTime : 05/09/20 11 03:00:00 PM Not Available Not Available Not Available Vitamin D2 07/08 completed Not Available Not Available Not Available Multi Vitamin 9 mg iron/15 mL oral liquid 03/13 completed Prescrib ed Elsewher e: Yes Loca tion: [facility] georgi [facility] odify By: mariseladical Encount er DateTime : 01/25/20 13 11:00:00 AM Not Available Not Available Not Available guaifenes in ER 600 mg tablet, extended release 12 hr 07/08 completed Not Available Not Available Not Available Onexton 1.2 % (1 % base)-3.7 5 % topical gel with pump apply by topical route every day a pea-size d amount to cover areas of face with thin layer 09/10 completed Prescrib ed Elsewher e: Yes [facility] By: harleen sofia DateTime : 03/13/20 15 09:30:00 AM Not Available Not Available Not Available Vitals Date Recorded Body height Body mass index (BMI) Body weight Systolic blood pressure Diastolic blood pressure Provider Name and Address Organization Details Last Updated DateTime 02/10/2022 173.36 cm 31.6 kg/m2 94084.52 g 120 mm[Hg] 68 mm[Hg] Shirin Joseph [facility] 10:06:10 Date Recorded Body height Body mass index (BMI) Body weight Systolic blood pressure Diastolic blood pressure Provider Name and Address Organization Details Last Updated DateTime 11/28/2022 173.36 cm 31.1 kg/m2 44376.03 g 113 mm[Hg] 74 mm[Hg] Kandis Lopez [facility] 3 13:03:41 Date Recorded Body height Body mass index (BMI) Body weight Systolic blood pressure Diastolic blood pressure Provider Name and Address Organization Details Last Updated DateTime 12/06/2022 173.36 cm 30.6 kg/m2 09282.25 g 114 mm[Hg] 69 mm[Hg] Kandis Lopez [facility] 3 09:00:12 Date Recorded Body height Body mass index (BMI) Body weight Systolic blood pressure Diastolic blood pressure Provider Name and Address Organization Details Last Updated DateTime 07/08/2024 173.36 cm 34.4 kg/m2 665875.0 6 g 111 mm[Hg] 69 mm[Hg] Kandis Lopez [facility] 4 10:29:02 Date Recorded Body height Body mass index (BMI) Body weight Systolic blood pressure Diastolic blood pressure Provider Name and Address Organization Details Last Updated DateTime 08/20/2024 173.36 cm 33.5 kg/m2 765226.5 1 g 141 mm[Hg] 70 mm[Hg] Nikki Beasley [facility] 5 09:38:18 Social History Question Answer Notes LastModified by Organizat ion Details LastModified Time Tobacco Smoking Status Never Smoker Kandis Lopez [facility] 11/06/2021 10:17:47 Do You Have An Advance Directive? No [email or web address] Information n ot available 11/06/2021 What Is Your Level Of Alcohol Consumption? Occasional [email or web address] Information not available 11/06/2021 Are You Blind Or Do You Have Difficulty Seeing? No [email or web address] Information n ot available 11/06/2021 What Is Your Level Of Caffeine Consumption? Moderate [email or web address] Information not available 11/06/2021 In The 14 Days Before Symptom Onset, Have You Had Close Contact With A Laboratory-confirm ed COVID-19 While That Case Was Ill? No [email or web address] Information n ot available 11/06/2021 In The 14 Days Before Symptom Onset, Have You Had Close Contact With A Person Who Is Under Investigation For COVID-19 While That Person Was Ill? No [email or web address] Information not available 11/06/2021 Have You Been To An Area Known To Be High Risk For COVID-19? No [email or web address] Information not available 11/06/2021 Are You Deaf Or Do You Have Serious Difficulty Hearing? No [email or web address] Information not available 11/06/2021 What Type Of Diet Are You Following? REGULAR [email or web address] Information n ot available 11/06/2021 What Is The Highest Grade Or Level Of School You Have Completed Or The Highest Degree You Have Received? 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 Yes [email or web address] Information not available 11/06/2021 Have You Ever Been Counseled For Unhealthy Alcohol Use? No [email or web address] Information not available 11/06/2021 Do You Use Your Seat Belt Or Car Seat Routinely? Yes [email or web address] Information not available 11/06/2021 Do You Have Smoke And Carbon Monoxide Detectors In Your Home? Yes [email or web address] Information not available 11/06/2021 How Much Tobacco Do You Smoke? No [email or web address] Information not available 11/06/2021 Do You Feel Stressed (tense, Restless, Nervous, Or Anxious, Or Unable To Sleep At Night)? IL02629-5 [email or web address] Information not available 07/08/2024 Do You Use Any Illicit Or Recreational Drugs? No [email or web address] Information not available 11/06/2021 Do You Use Sunscreen Routinely? No [email or web address] Information not available 11/06/2021 Has Tobacco Cessation Counseling Been Provided? No [email or web address] Information not available 11/06/2021 Have You Used IV Drugs? No Information not available 11/06/2021 Do You Or Have You Ever Used Any Other Forms Of Tobacco Or Nicotine? No [email or web address] Information not available 11/06/2021 Sex: Unknown Functional Status Question Answer Note LastModified by Organizat ion Details LastModified Time Do you have difficulty walking or climbing stairs? No [email or web address] Information not available 11/06/2021 Are you able to walk? YESWOREST Information not available 11/06/2021 Are you able to care for yourself? Yes [email or web address] Information not available 11/06/2021 Do you have difficulty dressing or bathing? No [email or web address] Information not available 11/06/2021 What is your exercise level? Occasional [email or web address] Information not available 11/06/2021 Mental Status None recorded. Family History Relationship Description Onset Age of this Age Resolved Age Notes LastModified by Organization Details LastModified Time Maternal Grandmother Hypertensive disorder [email or web address] Not available 2019 11:37:20 Maternal Grandmother Diabetes mellitus [email or web address] Not available 2019 11:37:29 Maternal Grandmother Hypercholest erolemia [email or web address] Not available 2019 11:37:35 Maternal Grandmother Malignant tumor of breast [email or web address] Not available 11/06 10:23:14 Mother Diabetes mellitus [email or web address] Not available 2019 11:37:29 Mother Disorder of thyroid gland [email or web address] Not available 2019 11:37:42 Paternal Grandfather Alcoholism [email or web address] Not available 1 09/08/2023 09:48:09 Maternal Aunt Malignant tumor of pancreas [email or web address] Not available 2023 09:48:09 Maternal Aunt Diabetes mellitus [email or web address] Not available 11/06 10:23:41 Father Malignant neoplasm of skin [email or web address] Not available 2024 09:39:41 Notes:Maternal aunt: Diabete s mellitus, Pancreatic Cancer Maternal grandfather: Diabetes mellitus Maternal grandmother: Cancer, breast, Diabetes mellitus Medical History Condition Response Allergies (Food, seasonal, environmental ) N Other Y Breast Cancer N Drug/Latex Allergies/Reactions N Blood Transfusion N Dermatologic Disorders Y Lung Disease N Defects or Inherited Disease N Breast Problem N Gestational Diabetes N Hematologic disorders N Anesthesia Complications N History of STI N Deep Vein Thrombosis N Polycystic ovary syndrome N Anxiety Disorder Y Autoimmune disease N Arthritis N Infertility N Polyps N Acid Reflux (GERD) Y History of abnormal pap N Cancer N Stroke N Varicosities N Neurologic/Epilepsy Y Endometriosis N High Cholesterol N Headaches N Fibromyalgia N Kidney Disease N Heart Problems N Kidney or Bladder Problems N Thyroid Problems N GI Problems N Eating Disorder N Anemia N Art (IVF or FET) N Psychiatric Illness N Ovarian Cancer N Diabetes N Pulmonary (TB, Asthma) N Hepatitis/Liver Disease N No Past Medical History N Eczema N Urinary Tract Infection N Abuse/Domestic Violence N Asthma N Trauma/Violence N Depression/ depression Y Heart Disease N Pre-Eclampsia Y Hypertension N Osteoporosis N Thrombophilias N Gynecological History Statement/Question Response Abnormal Pap N Date of Last Mammogram Date of LMP 06/28/2024 N STIs/STDs N Was last menstrual period normal N HPV Vaccine Y Current Control Method Seeking Pre gnancy Sexually Active? Y Date of DEXA bone scan Age of first menstrual cycle 13 Date of Last Pap Smear 07/08/2024 Sexual Problems? N LMP Unknown N Obstetrics History GPAL:G 0 P 0 0 0 0 Type Value Living 0 Total 0 Past Encounters Encounter ID Performer Location Encounter Start Date Encounter Closed Date Diagnosis/Indication Diagnosis SNOMED-CT Code Diagnosis ICD10 Code Diagnosis Note [id number] Karissa Bell , [facility] [address] [address] 05/01/2020 11:20:49 05/01/2020 13:16:56 Gynecologic examination 88507305 Z01.419 Take Calcium with Vitamin D 1200mg daily if not receiving in daily diet. It is strongly advised to have an annual flu shot and up can obtain at most pharmacies . If you have not had a TDap shot in the last 10 years you should obtain one as well. Discussed with patient & provided with informatio n regarding Gardisil vaccine to prevent the 4 strains for HPV that cause cervical cancer if under age 26. Encourage safe sexual practices, to use condoms and limit partners if not already in a monogamous relationsh ip. Do monthly self breast exams. Have mammogram yearly or every other year depending on family history. BRCA testing is now available for patients with strong genetic history of female cancer. If interested contact the office. Engage in daily exercise of low impact aerobic exercise 45-60 minutes 4-5 times weekly. Avoid tobacco and illicit drugs as well as using moderation with alcohol intake less than 1-2 8 oz beverages daily. This lifestyle behavior pattern will lead to less health conditions and longer life span. If BMI greater than 25 weight watchers or dietary consult advised. Patient received above instructio ns, and questions have been answered. If you have any questions please call or respond to this email. Patient was made aware of the patient portal and may obtain a paper copy of today's plan if desired. No issues or questions this year. Wants pap updated. Declines need std screening [id number] Karissa Bell [facility] [address],[place] [address] 12/06/2022 08:48:47 12/06/2022 09:26:01 Removal of intrauterine device [id number] Z30.432 It was explained that she may have bleeding or spotting after the removal of the device today as well. If cannot see the strings of this device we will need to get an US image to make that the device is still in place and not in an unobtainab le position. She expressed understand ing of all the above instructio ns. Resources given for further exploratio n of David Method of Family Planning. [id number] Karissa Bell [facility] [address],[place] [address] 11/06/2021 10:00:48 11/06/2021 10:45:30 Pain in pelvis 71967492 R10.2 Today we agreed to a round of clindamyci n for inflammati on in area of pelvis possibly due to a resolving ovarian cyst as evidenced by free fluid found pelvic US which was completed at [facility] (report viewed on patient J.G. inkhart phone cory). There was no other findings on Abdominal/ pelvic US or xray completed. She is working with her PCP for GI issues of nausea and will be referred to GI if this does not resolve very soon. Patient is to contact office or go to nearest ED/Urgent care if fever >/= 100.1, pain, excessive bleeding, unusual drainage or swelling in area of concern; or experienci ng worsening sx's or new onset of concerning sx's. Understand ing verbalized . All questions answered to patient satisfacti on. Will contact with her swab results via portal/maribel ne. Time spent in visit is a total of 22 mins with at least 50% of visit consisting of counseling and review of plan of care. [id number] Karissa Bell [facility] [address],[place] [address] 02/10/2022 09:49:03 02/10/2022 17:31:48 Skin irritation 207139476 L30.9 Skin looks like experienci ng some contact dermatitis but uncertain what could've caused it.If not resolved needs to f/u at derm office.Isael nolan contact with swab results. Time spent in visit is a total of 15 mins with at least 50% of visit consisting of counseling and review of plan of care. [id number] [facility] [address],[place] [address] 11/28/2022 12:42:54 11/28/2022 15:31:17 Gynecologic examination 26438667 Z01.419 Take Calcium with Vitamin D 1200mg daily if not receiving in daily diet. It is strongly advised to have an annual flu shot and up can obtain at most pharmacies . If you have not had a TDap shot in the last 10 years you should obtain one as well. Discussed with patient & provided with informatio n regarding Gardisil vaccine to prevent the 4 strains for HPV that cause cervical cancer if under age 26. Encourage safe sexual practices, to use condoms and limit partners if not already in a monogamous relationsh ip. Do monthly self breast exams. Have mammogram yearly or every other year depending on family history. BRCA testing is now available for patients with strong genetic history of female cancer. If interested contact the office. Engage in daily exercise of low impact aerobic exercise 45-60 minutes 4-5 times weekly. Avoid tobacco and illicit drugs as well as using moderation with alcohol intake less than 1-2 8 oz beverages daily. This lifestyle behavior pattern will lead to less health conditions and longer life span. If BMI greater than 25 weight watchers or dietary consult advised. Patient received above instructio ns, and questions have been answered. If you have any questions please call or respond to this email. Patient was made aware of the patient portal and may obtain a paper copy of today's plan if desired. Pap/hpv sent STD Screen declined Genetic Screen discussed Colon Screen na Dexa Screen na Routine Labs PCP Skin irritation [id number] L30.9 RF sent Use prn [id number] NAYA Cohen [facility] [address],[facility] [place] [address] 07/08/2024 09:46:44 07/08/2024 11:43:39 Gynecologic examination [id number] Z01.419 WWEBC - TTC, continue daily PNVPap - UTD, not indicated todaySTI screen - declinedRo utine labs - orderedRTC in 1 yr or sooner if needed It is strongly advised to have an annual flu shot and up can obtain at most pharmacies . If you have not had a TDap shot in the last 10 years you should obtain one as well. Discussed with patient & provided with informatio n regarding the HPV vaccine if applicable . Encourage safe sexual practices, to use condoms and limit partners if not already in a monogamous relationsh ip. Do monthly self breast exams. BRCA testing is now available for patients with strong genetic history of female cancer. If interested contact the office. Engage in regular exercise. Avoid tobacco and illicit drugs. This lifestyle behavior pattern will lead to less health conditions and longer life span. If BMI greater than 25 dietary consult advised. Questions answered. Adult heal th examination [id number] Z00.00 [id number] BEENA RO MD [facility] [address] [address] 08/20/2024 09:31:50 08/20/2024 17:13:16 Missed miscarriage 07454948 O02.1 - US c/w missed miscarriag e at [facility] yesterday, no FHT- denies cramping or bleeding- discussed risks and benefits of expectant vs medical vs surgical management - discussed bleeding precaution s- patient desires medical management , rediscusse d risks of this management options and return precaution s- patient to call after bleeding resolves to schedul hCG draw Health Concerns Section Related Observation LastModified by Organization Detai ls LastModified Time None Recorded Concern Status LastModified by Organization Details LastModified Time None Recorded Advance Directives Directive N: Payers Encounter Date Sequence Insurance Name Policy Number Policy Rose Covered Member ID Rose Member ID Guarantor Name 02/10/2022 1 EAST - DOS PRIOR TO 2024 - [employer] () Karishma Ocampo [id number] Karishma Ocampo 11/28/2022 1 EAST - DOS PRIOR TO 2024 - [employer] () Karishma Ocampo [id number] Karishma Ocampo 12/06/2022 1 EAST - DOS PRIOR TO 2024 - [employer]NA () Karishma Ocampo [id number] Karishma Ocampo 07/08/2024 1 EAST - DOS PRIOR TO 2024 - [employer] () Karishma Ocampo [id number] Karishma Ocampo 08/20/2024 1 WEST - [employer] - PRIME () Karishma Ocampo [id number] Karishma Ocampo Notes Date Note Type Note Provider Name and Address Organization Details Recorded Time 02/10/2022 text/html Vaginal/Vulvar ProblemReported bypatient.Location:v ulva (Ext vulva skin red patches, itchy, Just diagnosed with a few contact derm irritants by triple valve tester.) Duration:present for 1-2 weeks; wax/wanes Quality:itching; Neg d/c, odor Itching is ext only Severity:mild Context:sexually active (MOnogamous) Alleviating Factors:none Aggravating Factors:tight fitting clothing Associated Symptoms:no vaginal itching; no vaginal irritation; no vaginal pain; no vulvar swelling/erythema; no vulvar pain; no vulvar lesions; no pelvic pain; no dyspareunia; no dysuria; no fever; no abdominal pain;vulvar itching/irritation AGUSTÍN Christiansen [address], [place], [address], [facility] 02/10/2022 17:26:54 11/28/2022 text/html Annual GYNReport ed bypatient.Menstrual cycle:Normal menses Urinary symptoms:No hematuria; No incontinence Vulva:No genital lesion Vagina:Normal vaginal discharge Breast:No breast pain; No breast lump; No nipple discharge Current Contraception:Satisf ied with current contraception; Intrauterine device (iud) Sexual complaints:No sexual complaints; No pain during intercourse; Normal libido Menopausal Symptoms:No menopausal symptoms; Normal vaginal lubrication Psychological symptoms:No depression; No anxiety; No PMDD Preventive measures:Encourage self breast examination; Encourage regular exercise; Encourage no tobacco use; Encourage regular mammograms starting age 40; Followed with yearly pap smears AGUSTÍN Christiansen [address], [place], [address], [facility] 11/28/2022 15:24:57 12/06/2022 text/html Patient presents for IUD removal. NAYA Christiansen- [address], [place], [address], [facility] 12/06/2022 09:19:50 07/08/2024 text/html Annual GYNReport ed bypatient.Menstrual cycle:Normal menses Urinary symptoms:No hematuria; No incontinence Vulva:No genital lesion Vagina:Normal vaginal discharge Breast:No breast pain; No breast lump; No nipple discharge Current Contraception: control not practiced Sexual complaints:No sexual complaints; No pain during intercourse; Normal libido Menopausal Symptoms:No menopausal symptoms; Normal vaginal lubrication Psychological symptoms:No depression; No anxiety; No PMDD Preventive measures:Encourage self breast examination; Encourage regular exercise; Encourage no tobacco use; Encourage regular mammograms starting age 40Notes:34yo wweTTC, taking daily PNVno h/o abnormal papslast pap 11/2022 : nilm, HPV (-) NAYA Cohen [address], [place], [address], [facility] 07/08/2024 11:41:44 08/20/2024 text/html Patient presents for miscarriage management discussion. She reports mild spotting starting on Monday into Monday, with mild cramping. These symptoms have resolved. She was seen at [place] for an ultrasound yesterday which demonstrated a GS with irregular yolk sac and 7.6mm pole with no cardiac activity, consistent with missed miscarriage. BEENA RO MD [address], [place], [address], [facility] 08/20/2024 17:00:49 OBGyn Episode No OBEpisode recorded.
--- OUTSIDE RECORDS SUMMARY | 2024-09-10 18:34 | XMS_ITS | Clinical Summary ---
Author Organization [facility] Virtual Care Address [address] [place] [address] Phone Care Team Providers Care Art Gallery Internship Name Role Phone Vidhi Frias MD Primary Care Provi natasha Allergies No known active allergies Medications PNV [...] l (VITAMIN D-3) 400 unit capsule 09/28/19 22 Active triamcinolone (KENALOG) 0.1 % ointment 02/11/20 [...] sprays into each nostril daily 16 g 08/02/19 24 025 Discontinued omeprazole (PriLOSEC) 40 mg capsuleIndicat ions:Abdominal pain, generalized,Na usea Take 1 capsule (40 mg total) by mouth daily 90 capsule 06/05/20 24 025 Discontinued Active Problems Problem Noted Date Diagnosed Date Gastroesophageal reflux disease 06/26/2024 Non-seasonal allergic rhinitis due to pollen 10/2023 Assessment & Plan (06/19/2024 9:11 AM BUS BOY): Continue Nasal saline spray (Simply saline, Little Remedies, [place], [place]) 2 second sprays or 2 squeezes into [...] 05/24/2023 Assessment & Plan (06/19/2024 9:11 AM BUS BOY): Continue Nasal saline spray (Simply saline, [place] Remedies, [place], [place]) 2 second sprays or 2 squeezes into [...] dive Assessment & Plan (05/24/2023 10:18 AM BUS BOY): Continue nasal saline Followed by Flonase CT sinus - call with results Sinus congestion 09/15/2022 Assessment & Plan (09/21/2023 11:03 AM BUS BOY): She is following with ENT for her sinuses and continues to use Flonase 2 puffs in each nostril at bedtime. Assessment & Plan (01/25/2023 12:22 PM CDT): Nasal saline spray (Simply saline, [place] Rem[place]ies, [place], [place]) 2 second sprays or 2 squeezes into [...] bilaterally Assessment & Plan (09/15/2022 12:12 PM BUS BOY): I have encouraged the patient to continue with the allergy medicines on a daily basis. I have ordered Flonase. I have ordered a sinus CT without contrast. Patient will continue with saline rinses I have also referred the patient back to ENT. Obstructive sleep apnea 10/26/2021 Assessment & Plan (09/21/2023 11:02 AM BUS BOY): The patient continues to benefit from the auto titrating CPAP unit with a range of 5-11 cm water pressure. Her DME supplier is [employer]. She will follow up here in 1 year after returning from her appointment. Assessment & Plan (09/15/2022 12:12 PM BUS BOY): Due to the sinus cavities feeling full [...] [employer]. The patient and I also discussed [id number]-[id number] products for dry nasal cavities. Assessment & Plan (10/26/2021 11:09 AM CDT): Different options were discussed for treatment of sleep apnea. The patient states she would like to try the auto titrating CPAP set at a range of 5-15 cm water pressure. Her DME will be [employer]. I have sent an order over to [facility] for an auto titrating CPAP set at [...] 02/02/2021 Assessment & Plan (06/05/2024 8:40 AM BUS BOY): Chronic. Stable. Continue sertraline 50 mg daily [...] 02/28/2019 Assessment & Plan (06/05/2024 8:40 AM BUS BOY): BMI Follow-up includes: education provided. Rosacea 02/28/2019 Anxiety disorder 02/12/2019 Assessment & Plan (06/05/2024 8:40 AM BUS BOY): Chronic. Stable. Continue sertraline 50 mg daily [...] 03/17/2022 Assessment & Plan (09/23/2021 8:57 AM BUS BOY): The patient presents with excessive daytime hypersomnia [...] any changes Call for questions or concerns Encounters Date Type Department Care Team Description 06/26/2024 Telephone [facility] at [address] [place] [address] Makenzie Jeffrey 06/19/2024 8:45 AM BUS BOY Office Visit [facility] - [address] [place] [address] Candace Vazquez, Chronic maxillary sinusitis (Primary Dx); Non-seasonal allergic rhinitis due to pollen; Chronic sinusitis, unspecified location from Last 3 Months Immunizations Immunization Administration Dates Next Due HPV, [...] adsorbed 12/10/2002 Tdap 11/18/2011 Typhoid, Unspecified 03/28/2015 Surgical History Surgery Date Site/Laterality Comments TYMPANOSTOMY TUBE PLACEMENT TONSILLECTOMY LASIK WISDOM TOOTH EXTRACTION Medical History Medical History Date Comments Anxiety Anemia Rosacea Dry eyes Neck pain SATYA (obstructive sleep apnea) Family History Medical History Relation Name Comments Crohn's disease Brother Vitamin D deficiency Brother shingles Father Atrial fibrillation Maternal Grandmother Diabetes Mother Hyperlipidemia Mother Thyroid disease Mother Relation Name Status Comments Brother Alive Father Alive Maternal Grandmother Alive Mother Alive Social History Tobacco Use Types Packs/Day Years [...] Orientation Straight 03/16/2022 9: 36 PM CDT Obstetrics History Last Filed Vital Signs Vital Sign Reading Time Taken Comments Blood Pressure 118/70 06/05/2024 8:22 AM BUS BOY Pulse 78 06/05/2024 8:22 AM BUS BOY Temperature 36.5 C (97.7 F) 06/05/2024 8:22 AM BUS BOY Respiratory Rate 16 06/05/2024 8:22 AM BUS BOY Oxygen Saturation 98% 06/05/2024 8:22 AM BUS BOY Inhaled Oxygen Concentration - - Weight 104.3 kg (230 lb) 06/19/2024 8:33 AM BUS BOY Height 175.3 cm (5' 9.02 ) 06/19/2024 8:33 AM CS T Body Mass Index 33.95 06/19/2024 8:33 AM BUS BOY Plan of Treatment Upcoming Encounters Date Type Department Care Team (Latest Contact Info) Description 10/02/2024 7:55 AM CDT Hospital Encounter [address] [address] Hussein Smith MD [address] [place] [address] [address] [place] [address] 10/02/2024 7:55 AM CDT - 10/02/2024 8:30 AM CDT Surgery [address] [address] Hussein Smith MD [address] [facility] [address] [place] [address] ESOPHAGOGASTRODUODENOSCOPY Scheduled Procedures Name Priority Associated Diagnoses Date/Ti me ESOPHAGOGASTRODUODENOSCOPY Gastroesophageal reflux disease, unspecified whether esophagitis present 10/02/2024 7:55 AM CDT Health Maintenance Due Date Last Done Comments Hepatitis C Screening 1992 Varicella Vaccines (1 of 2 - 13+ 2-dose series) 2005 Regular Well Visit/Exam 18-64 2010 Cervical Cancer Screening 05/01/2021 05/01/2020 DTaP/Tdap/Td Vaccine (3 - Td or Tdap) 11/17/2021 11/18/2011, 12/10/2002 Covid-19 Vaccine ( season) 2024 10/28/2020, 09/30/2020 Depression Screening 06/05/2025 06/05/2024, 04/25/2022, 03/29/2022, Additional history exists Hepatitis B Screening Completed 07/19/2012 , 01/10/2012, 11/23/2011 HPV Vaccines Completed 09/03/2019, 04/16, 07/19/2012 Pneumococcal vaccine <65 Aged Out 01/12/2022 No longer eligible based on patient's age to complete this topic Influenza Vaccine Completed 06/05/2024, , 03/29/2022, Additional history exists Procedures Procedure Name Priority Date/Time Associated Diagnosis Comments HM PAP SMEAR Routine 05/01/2020 from Last 3 Months or Most Recently Relevant to Health Maintenance Results * HM PAP SMEAR (05/01/2020) us Historical Provider HEALTH MAINTENANCE Final Result from Last 3 Months or Most Recently Relevant to Health Maintenance Insurance [facility] CLAIMS Care Teams Art Gallery Internship Relationship Specialty Start Date End Date Vidhi Frias MD [address] [place] [address] PCP - General Family Medicine 11/23/20
--- OUTSIDE RECORDS SUMMARY | 2024-09-10 18:34 | XMS_ITS | Patient Health Record ---
Author Organization [facility] Address [address] [place] [address] Care Team Providers Care Fuel Pilot Engineer Name Role Phone Vidhi Frias Primary Care Provider Ramez Martinez Unavailable [phone] Z[employer]-Migration, Provider Unavailable Unavailab le Allergies No Known Allergies Reason For Referral No Information Medications Medication SIG (Take, Route, Frequency, Duration) Notes Start Date End Date Status HYDROXYZINE hydrochloride 25 mg 1 tab(s) orally 4 times a day Not-Taking Zoloft 50 MG 1 tab(s) orally once a day Active tiZANidine HCl 2 MG 2 tab(s) orally every 8 hours Active DHA 200 MG 1 cap(s) orally once a day Active Pepcid AC 10 MG 1 tab(s) orally once Active Mirena (52 MG) 52 MG 1 EA BY INTRAUTERINE ADMINISTRATION ONCE *Please review and pick correct strength-formula tion from [employer] options. If intended option is not shown, discontinue and re-order from Quick Search* Active Melatonin 5 MG 1 tab(s) orally once a day (at bedtime) Active Magnesium Gluconate 500 MG 1 TAB(S) ORALLY 2 TIMES A DAY *Please review and pick correct strength-formula tion from [employer] options. If intended option is not shown, discontinue and re-order from Quick Search* Active hydrOXYzine HCl 25 MG 1 tab(s) orally 4 times a day Not-Taking Levocetirizine Dihydrochloride 5 MG 1 tab(s) orally once a day (in the evening) Not-Taking Vitamin D3 1250 MCG 1 CAP(S) ORALLY ONCE A WEEK for 60 DAYS *Please review and pick correct strength-formula tion from [employer] options. If intended option is not shown, discontinue and re-order from Quick Search* Not-Taking ZOLOFT 50 mg 1 tab(s) orally once a day Active TRIAMCINOLONE ACETONIDE TOPICAL 0.1% 1 cory applied topically twice a day for 30 day(s) Active DHA 200 mg 1 cap(s) orally once a day Active Triamcinolone Acetonide 0.1 % 1 cory applied topically twice a day for 30 day(s) Active TIZANIDINE 2 mg 2 tab(s) orally every 8 hours Active MIRENA 52 mg 1 ea by intrauterine administration once Active PEPCID AC 10 mg 1 tab(s) orally once Active MAGNESIUM GLUCONATE 500 mg 1 tab(s) orally 2 times a day Active MELATONIN 5 mg 1 tab(s) orally once a day (at bedtime) Active LEVOCETIRIZINE 5 mg 1 tab(s) orally once a day (in the evening) Not-Taking VITAMIN D3 1250 mcg 1 cap(s) orally once a week for 60 days Not-Taking Immunizations Vaccine Route Administration Date Status Comme nts Flucelvax Unknown 03/29/2022 Administered NOC Pneumovax 23 IM Intramuscular 01/12/2022 Administered Social History Tobacco Use: Social History Observation Description Date Details (start date - stop date) Never Smoker NA - NA Smoking Smart Form: Question Answer Notes Are you a: never smoker Problems Problem Type SNOMED Code ICD Code Onset Dates Problem Status W/U Status Risk Notes Problem Anemia (433424218) Anemia, unspecified (D64.9) Active confirmed Problem Anxiety disorder (263954082) Anxiety disorder, unspecified (F41.9) Active confirmed Problem Streptococcal sore throat (15832775) Acute recurrent streptococcal tonsillitis (J03.01) Active confirmed Problem Allergic contact dermatitis caused by chemical (1035799995710228 3) Allergic contact dermatitis due to other chemical products (L23.5) Active confirmed Problem Rosacea (245405291) Rosacea, unspecified (L71.9) Active confirmed Problem Chronic fatigue syndrome (disorder) (00528559) Chronic fatigue, unspecified (R53.82) Active confirmed Problem History of infectious disease (045056342) Personal history of other infectious and parasitic diseases (Z86.19) Active confirmed Problem Eruption of skin (364660166) Rash and other nonspecific skin eruption (R21) Active confirmed Problem Vitamin D deficiency (17836363) Vitamin D deficiency, unspecified (E55.9) Active confirmed Encounters Encounter Location Date Provider Diagnosis [facility] - [address] [place] [place] [address] 12/30/2023 Provider Emma Allergic contact dermatitis due to other chemical products L23.5 Assessments Encounter Date Diagnosis (ICD Code) Assessment Notes Treatment Notes Treatment Clinical Notes Section Notes 12/30/2023 Allergic contact dermatitis due to other chemical products (ICD-10 - L23.5) Plan Of Treatment Pending Test Test Name Order Date STREPTOCOCCUS PNEUMONIAE IGG AB (23 SERO TYPES) 01/12/2022 STREPTOCOCCUS PNEUMONIAE IGG AB (23 SERO TYPES) 08/02/2022 VITAMIN D, 25-OH, TOTAL, [place] 01/12/2022 CARDIO IQ(R) VITAMIN D, 25 HYDROXY 08/02 CARDIO IQ(R) VITAMIN D, 25 HYDROXY 05/20 Insurance Providers Payer Name Payer Address Payer Phone Subscriber Number Group Number Insured Name Patient Relationship to Insured Coverage Start Date Coverage End Date [facility] [address] [place] [address] [phone] [id number] Karishma Ocampo Self - patient is the insured Medical (General) History Medical History History ICD Code Anemia, unspecified D64.9 Anxiety disorder, unspecified F41.9 Rosacea, unspecified L71.9 Vitamin D deficiency, unspecified E55.9 Personal history of other infectious and parasitic diseases Z86.19 Acute recurrent streptococcal tonsilliti s J03.01 Sleep apnea Surgical History Surgery Date(Month/Year) Lasik Tonsillectomy Tympanostomy Tube Placement [place] Tooth Extraction
[2024-09-10 18:35] VITALS: BP 112/68; PULSE 91; RESP 16; TEMP 36.4; O2SAT 100
[2024-09-10 21:50] LABS: Basophils Percent Auto 0.5 % (0.2-1.2); Eosinophils Absolute Auto 0.2 K/mm3 (0-0.3); Hematocrit 35.1 % (37.0-47.0); Hemoglobin 11.7 g/dL (12.0-15.0); Immature Granulocyte Absolute 0.02 K/mm3 (0.00-0.031); Immature Granulocyte Percent A 0.2 % (0-0.5); Lymphocytes Absolute Auto 2.12 K/mm3 (0.9-3.2); Lymphocytes Percent Auto 26.1 % (18.3-44.2); Mean Corpuscular HGB Conc 33.3 g/dl (32-36); Mean Corpuscular Hemoglobin 28.5 pg (26-34); Mean Corpuscular Volume 85.4 fl (80-100); Mean Platelet Volume 9.9 fl (7.4-10.4); Monocytes Absolute Auto 0.6 K/mm3 (0.1-0.6); Neutrophils Absolute Auto 5.2 K/mm3 (1.3-6.7); Neutrophils Percent Auto 64.2 % (45.5-73.1); Platelet Count Result 200 k/mm3 (150-375); Red Blood Count 4.11 M/mm3 (4.2-5.4); Red Cell Distribution Width 13.6 % (11.5-14.5); White Blood Count 8.1 K/mm3 (4.5-10.0)
[2024-09-10 22:01] LABS: INR 1.1; Prothrombin Time 14.5 Seconds (11.1-14.7)
[2024-09-10 22:02] LABS: Partial Thromboplastin Time 31.9 Seconds (22.3-36.8)
[2024-09-10 22:05] LABS: Lactic Acid Reflex 0.9 mmol/L (0.7-2.0)
[2024-09-10 22:07] LABS: Alanine Aminotransferase 13 U/L (6-35); Albumin Level 4.7 g/dL (3.5-5.1); Alkaline Phosphatase 45 U/L (38-126); Anion Gap 12 mmol/L (4-12); Bilirubin,Total 0.7 mg/dL (0.2-1.3); Blood Urea Nitrogen 10 mg/dL (7-17); CRP 2.1 mg/dL (<1.0); Calcium 9.2 mg/dL (8.4-10.2); Carbon Dioxide 22 mmol/L (22-30); Chloride 105 mmol/L (98-107); Estimated CRCL calculation 153 ml/min; Estimated Glomerular Filt Rate > 60; Glucose 96 mg/dL (65-110); Potassium 3.9 mmol/L (3.4-5.0); Sodium 139 mmol/L (137-145)
[2024-09-10 22:39] LABS: Aspartate Amino Transferase 20 U/L (14-36)
[2024-09-11] VITALS (10 sets, daily range): BP systolic 95–123; BP diastolic 49–67; PULSE 64–81; RESP 11–22; TEMP 36.2–36.6; O2SAT 99–100; BMI 32.0
--- NOTE | 2024-09-11 00:47 | ED_ITS ---
HPI - Female Genitourinary General Chief complaint: Vaginal Bleeding Stated complaint: miscarriage, heavy vaginal bleeding Time Seen by Provider: 09/11/24 00:19 Source: patient Mode of arrival: ambulatory Limitations: no limitations Related Data Allergies Allergy/AdvReac Type Severity Reaction Status Date / Time NKA Allergy Unknown Unknown Uncoded 09/10/24 16:17 Course Vital Signs Vital signs: Vital Signs Temperature 37.0 C 09/10/24 16:21 Pulse Rate 102 H 09/10/24 16:21 Respiratory Rate 20 09/10/24 16:21 Blood Pressure 145/75 H 09/10/24 16:21 Pulse Oximetry 100 09/10/24 16:21 Oxygen Delivery Room Air 09/10/24 16:21 Temperature 36.4 C 09/10/24 18:35 Pulse Rate 91 09/10/24 18:35 Respiratory Rate 16 09/10/24 18:35 Blood Pressure 112/68 09/10/24 18:35 Pulse Oximetry 100 09/10/24 18:35 Oxygen Delivery Room Air 09/10/24 16:21 MDM - Female Genitourinary Lab Data 09/10/24 21:40 09/10/24 21:40 Labs: Lab Results 09/10/24 09/11/24 Range/Units 21:40 00:34 WBC 8.1 (4.5-10.0) K/mm3 RBC 4.11 L (4.2-5.4) M/mm3 Hgb 11.7 L (12.0-15.0) g/dL Hct 35.1 L (37.0-47.0) % MCV 85.4 (80-100) fl MCH 28.5 (26-34) pg MCHC 33.3 (32-36) g/dl RDW 13.6 (11.5-14.5) % Plt Count 200 (150-375) k/mm3 MPV 9.9 (7.4-10.4) fl Immature Gran % (Auto) 0.2 (0-0.5) % Neut % (Auto) 64.2 (45.5-73.1) % Lymph % (Auto) 26.1 (18.3-44.2) % [place] % (Auto) 7.0 (2.6-8.5) % Eos % (Auto) 2.0 (0-4.4) % Baso % (Auto) 0.5 (0.2-1.2) % Lymph # (Auto) 2.12 (0.9-3.2) K/mm3 [place] # (Auto) 0.6 (0.1-0.6) K/mm3 Eos # (Auto) 0.2 (0-0.3) K/mm3 Baso # (Auto) 0.0 (0.0-0.1) K/mm3 Abs Immat Gran (auto) 0.02 (0.00-0.031) K/mm3 Absolute Neuts (auto) 5.2 (1.3-6.7) K/mm3 Absolute Nucleated RBC 0.000 (0.0-0.012) K/mm3 Nucleated RBC % 0.0 (0.0-0.2) % PT 14.5 (11.1-14.7) Seconds INR 1.1 APTT 31.9 (22.3-36.8) Seconds Sodium 139 (137-145) mmol/L Potassium 3.9 (3.4-5.0) mmol/L Chloride 105 (98-107) mmol/L Carbon Dioxide 22 (22-30) mmol/L Anion Gap 12 (4-12) mmol/L BUN 10 (7-17) mg/dL Creatinine 0.55 L (0.7-1.0) mg/dL Estim Creat Clear Calc 153 ml/min Estimated GFR > 60 (59 - ) Glucose 96 (65-110) mg/dL Lactic Acid 0.9 (0.7-2.0) mmol/L Calcium 9.2 (8.4-10.2) mg/dL Total Bilirubin 0.7 (0.2-1.3) mg/dL AST 20 (14-36) U/L ALT 13 (6-35) U/L Alkaline Phosphatase 45 (38-126) U/L C-Reactive Protein 2.1 H (<1.0) mg/dL Total Protein 8.0 (6.3-8.2) g/dL Albumin 4.7 (3.5-5.1) g/dL Urine Color Pending Urine Appearance Pending Urine pH Pending Ur Specific [place] Pending Urine Protein Pending Urine Glucose (UA) Pending Urine Ketones Pending Ur Blood (Man) Pending Urine Nitrate Pending Urine Bilirubin Pending Urine Urobilinogen Pending Leukocyte Esterase Rfl Pending Blood Type O Negative Antibody Screen Negative Screen Not Reportable Baby's Blood Type Not Reportable Baby's NIKIA Not Reportable Doses of RhIg Required 1 Discharge Plan Discharge Patient Language: Italian Follow-up/Referrals: Altagracia,MD Vidhi [Primary Care Provider] -
[2024-09-11 01:20] LABS: Add Urine Microscopic? YES; Appearance Urine Clear (Clear); Bilirubin Urine Negative (Negative); Blood Urine 3+ (Negative); Color Urine Yellow (Yellow); Glucose Urine UA Negative (Negative); Ketones Urine Trace mg/dL (Negative); Leukocyte Esterase Ur Negative LEU/UL (Negative); Nitrate Urine Negative (Negative); Protein Urine 1+ mg/dL (Negative); Specific Grav Ur > 1.045 (1.001-1.035)
[2024-09-11 01:21] LABS: Bacteria Urine 1+ /hpf; Squamous Epithelial Cell Urine Few /hpf (Few); WBC Urine 0-5 /hpf (0-3)
[2024-09-11] MEDS: RHO(D) IMMUNE GLOBULIN 300 MCG/2 ML SYRINGE IM (02:25)
[2024-09-11] MEDS: SODIUM CHLORIDE 0.9% IV 1,000 ML 999 ML IV CONT (02:35)
[2024-09-11] MEDS: ACETAMINOPHEN 500 MG TABLET 1000 MG PO ×3 (03:12→14:42)
[2024-09-11] MEDS: IBUPROFEN 600 MG TABLET PO ×3 (03:12→11:42)
[2024-09-11] MEDS: miSOPROStol 200 MCG TABLET 800 MCG BUCCAL (03:13)
[2024-09-11] MEDS: SODIUM CHLORIDE 0.9% IV 1,000 ML 125 ML IV CONT ×2 (03:37→11:51)
--- OUTSIDE RECORDS SUMMARY | 2024-09-11 04:35 | XMS_ITS | Patient Health Record ---
Author Organization [facility] Address [address] [place] [address] Care Team Providers Care Bilingual Manager Name Role Phone Vidhi Frias Primary Care Provider Ramez Martinez Unavailable [phone] ZZ-Migration, Provider Unavailable Unavailab le Allergies No [...] review and pick correct strength-formula tion from [employer] options. If intended option is not shown, discontinue and re-order from Quick Search* Active Melatonin 5 MG 1 tab(s) orally once a day (at bedtime) Active Magnesium Gluconate 500 MG 1 TAB(S) ORALLY 2 TIMES A DAY *Please review and pick correct strength-formula tion from [employer] options. If intended option is not shown, discontinue and re-order from Quick Search* Active hydrOXYzine HCl 25 MG 1 tab(s) orally 4 times a day Not-Taking Levocetirizine Dihydrochloride 5 MG 1 tab(s) orally once a day (in the evening) Not-Taking Vitamin D3 1250 MCG 1 CAP(S) ORALLY ONCE A WEEK for 60 DAYS *Please review and pick correct strength-formula tion from [employer] options. If intended option is not shown, [...] Status W/U Status Risk Notes Problem Anemia (609039646) Anemia, unspecified (D64.9) Active confirmed Problem Anxiety disorder (716343785) Anxiety disorder, unspecified (F41.9) Active confirmed Problem Streptococcal sore throat (88503975) Acute recurrent streptococcal tonsillitis (J03.01) Active confirmed Problem Allergic contact dermatitis caused by chemical (5744438210731945 3) Allergic contact dermatitis due to other chemical products (L23.5) Active confirmed Problem Rosacea (203453424) Rosacea, unspecified (L71.9) Active confirmed Problem Chronic fatigue syndrome (disorder) (92777757) Chronic fatigue, unspecified (R53.82) Active confirmed Problem History of infectious disease (680418889) Personal history of other infectious and parasitic diseases (Z86.19) Active confirmed Problem Eruption of skin (888240434) Rash and other nonspecific skin eruption (R21) Active confirmed Problem Vitamin D deficiency (23279993) Vitamin D deficiency, unspecified (E55.9) Active confirmed Encounters Encounter Location Date Provider Diagnosis [facility] - [address] [place] [address] 12/30/2023 Provider Emma Allergic contact dermatitis due [...] Insured Coverage Start Date Coverage End Date [facility] [address] [place] [phone] [id number] Karishma Ocampo Self - patient is the insured Medical (General) History Medical History History ICD Code Anemia, unspecified D64.9 Anxiety disorder, unspecified F41.9 Rosacea, unspecified L71.9 Vitamin D deficiency, unspecified E55.9 Personal history of other infectious and parasitic diseases Z86.19 Acute recurrent streptococcal tonsilliti s J03.01 Sleep apnea Surgical History Surgery Date(Month/Year) Lasik Tonsillectomy Tympanostomy Tube Placement [place] Tooth Extraction
--- OUTSIDE RECORDS SUMMARY | 2024-09-11 04:35 | XMS_ITS | Referral Summary ---
Author Organization [facility] Virtual Care Address [address] [place] [phone] Phone Care Team Providers Care Proofsheet Corrector Name Role Phone Vidhi Frias MD Primary Care Provi natasha Encounters Date Type Department Care Team Description 06/26/2024 Telephone [facility] Gastroenterology at [address] [place] [address] Makenzie Jeffrey 06/19/2024 8:45 AM TRUCK CLEANER Office Visit [facility] ENT Specialists - [address] [place] [address] Candace Vazquez DO Chronic maxillary [...] 10/2023 Assessment & Plan (06/19/2024 9:11 AM TRUCK CLEANER): Continue Nasal saline spray (Simply saline, Little Remedies, [place], [place]) 2 second sprays or 2 squeezes into [...] 05/24/2023 Assessment & Plan (06/19/2024 9:11 AM TRUCK CLEANER): Continue Nasal saline spray (Simply saline, Little Remedies, [place], [place]) 2 second sprays or 2 squeezes into [...] dive Assessment & Plan (05/24/2023 10:18 AM TRUCK CLEANER): Continue nasal saline Followed by Flonase CT sinus - call with results Sinus congestion 09/15/2022 Assessment & Plan (09/21/2023 11:03 AM TRUCK CLEANER): She is following with ENT for her sinuses and continues to use Flonase 2 puffs in each nostril at bedtime. Assessment & Plan (01/25/2023 12:22 PM CDT): Nasal saline spray (Simply saline, Little Remedies, [place], [place]) 2 second sprays or 2 squeezes into [...] bilaterally Assessment & Plan (09/15/2022 12:12 PM TRUCK CLEANER): I have encouraged the patient to continue with the allergy medicines on a daily basis. I have ordered Flonase. I have ordered a sinus CT without contrast. Patient will continue with saline rinses I have also referred the patient back to ENT. Obstructive sleep apnea 10/26/2021 Assessment & Plan (09/21/2023 11:02 AM TRUCK CLEANER): The patient continues to benefit from the auto titrating CPAP unit with a range of 5-11 cm water pressure. Her DME supplier is [employer]. She will follow up here in 1 year after returning from her appointment. Assessment & Plan (09/15/2022 12:12 PM TRUCK CLEANER): Due to the sinus cavities feeling full [...] [employer]. The patient and I also discussed [id number] products for dry nasal cavities. Assessment & [...] 02/02/2021 Assessment & Plan (06/05/2024 8:40 AM TRUCK CLEANER): Chronic. Stable. Continue sertraline 50 mg daily [...] 02/28/2019 Assessment & Plan (06/05/2024 8:40 AM TRUCK CLEANER): BMI Follow-up includes: education provided. Emiliea 02/28/2019 Anxiety disorder 02/12/2019 Assessment & Plan (06/05/2024 8:40 AM TRUCK CLEANER): Chronic. Stable. Continue sertraline 50 mg daily [...] 03/17/2022 Assessment & Plan (09/23/2021 8:57 AM TRUCK CLEANER): The patient presents with excessive daytime hypersomnia [...] Comments Blood Pressure 118/70 06/05/2024 8:22 AM TRUCK CLEANER Pulse 78 06/05/2024 8:22 AM TRUCK CLEANER Temperature 36.5 C (97.7 F) 06/05/2024 8:22 AM TRUCK CLEANER Respiratory Rate 16 06/05/2024 8:22 AM TRUCK CLEANER Oxygen Saturation 98% 06/05/2024 8:22 AM TRUCK CLEANER Inhaled Oxygen Concentration - - Weight 104.3 kg (230 lb) 06/19/2024 8:33 AM TRUCK CLEANER Height 175.3 cm (5' 9.02 ) 06/19/2024 8:33 AM CS T Body Mass Index 33.95 06/19/2024 8:33 AM TRUCK CLEANER Plan of Treatment Upcoming Encounters Date Type Department Care Team (Latest Contact Info) Description 10/02/2024 7:55 AM CDT Hospital Encounter [address] [address] Hussein Smith MD [address] [place] [address] [place] [address] 10/02/2024 7:55 AM CDT - 10/02/2024 8:30 AM CDT Surgery [address] [address] Hussein Smith MD [address] [place] [address] [place] [address] ESOPHAGOGASTRODUODENOSCOPY Scheduled Procedures Name Priority Associated Diagnoses [...] Most Recently Relevant to Health Maintenance Insurance [facility] CLAIMS Member Subscriber Plan / Payer (Ef fective 2024-Present) Name:Karishma Ocampo Relation to Subscriber:Self Name:Karishma Ocampo Payer ID:[id number] (NAIC) Group ID:Not on file Type:[employer] Address: [facility] [place] [address] Care Teams Proofsheet Corrector Relationship Specialty Start Date End Date Vidhi Frias MD [address] [place] [address] PCP - General Family Medicine 11/23/20
--- OUTSIDE RECORDS SUMMARY | 2024-09-11 04:35 | XMS_ITS | Clinical Summary ---
Author Organization [facility] Virtual Care Address [address] [place] [phone] Phone Care Team Providers Care Vending Machine Assembler Name Role Phone Vidhi Frias MD Primary [...] 10/2023 Assessment & Plan (06/19/2024 9:11 AM RESOLUTION AGENT): Continue Nasal saline spray (Simply saline, Little Remedies, [place], [place]) 2 second sprays or 2 squeezes into [...] 05/24/2023 Assessment & Plan (06/19/2024 9:11 AM RESOLUTION AGENT): Continue Nasal saline spray (Simply saline, Little Remedies, [place], [place]) 2 second sprays or 2 squeezes into [...] dive Assessment & Plan (05/24/2023 10:18 AM RESOLUTION AGENT): Continue nasal saline Followed by Flonase CT sinus - call with results Sinus congestion 09/15/2022 Assessment & Plan (09/21/2023 11:03 AM RESOLUTION AGENT): She is following with ENT for her sinuses and continues to use Flonase 2 puffs in each nostril at bedtime. Assessment & Plan (01/25/2023 12:22 PM CDT): Nasal saline spray (Simply saline, Little Remedies, [place], [place]) 2 second sprays or 2 squeezes into [...] bilaterally Assessment & Plan (09/15/2022 12:12 PM RESOLUTION AGENT): I have encouraged the patient to continue with the allergy medicines on a daily basis. I have ordered Flonase. I have ordered a sinus CT without contrast. Patient will continue with saline rinses I have also referred the patient back to ENT. Obstructive sleep apnea 10/26/2021 Assessment & Plan (09/21/2023 11:02 AM RESOLUTION AGENT): The patient continues to benefit from the auto titrating CPAP unit with a range of 5-11 cm water pressure. Her DME supplier is [employer]. She will follow up here in 1 year after returning from her appointment. Assessment & Plan (09/15/2022 12:12 PM RESOLUTION AGENT): Due to the sinus cavities feeling full [...] [employer]. The patient and I also discussed [id number] products for dry nasal cavities. Assessment & [...] 02/02/2021 Assessment & Plan (06/05/2024 8:40 AM RESOLUTION AGENT): Chronic. Stable. Continue sertraline 50 mg daily [...] 02/28/2019 Assessment & Plan (06/05/2024 8:40 AM RESOLUTION AGENT): BMI Follow-up includes: education provided. Rosacea 02/28/2019 Anxiety disorder 02/12/2019 Assessment & Plan (06/05/2024 8:40 AM RESOLUTION AGENT): Chronic. Stable. Continue sertraline 50 mg daily [...] 03/17/2022 Assessment & Plan (09/23/2021 8:57 AM RESOLUTION AGENT): The patient presents with excessive daytime hypersomnia [...] Type Department Care Team Description 06/26/2024 Telephone [facility] Gastroenterology at [address] [place] [address] Makenzie Jeffrey 06/19/2024 8:45 AM RESOLUTION AGENT Office Visit [facility] ENT Specialists - [address] [place] [address] Candace Vazquez, Chronic maxillary sinusitis [...] Comments Blood Pressure 118/70 06/05/2024 8:22 AM RESOLUTION AGENT Pulse 78 06/05/2024 8:22 AM RESOLUTION AGENT Temperature 36.5 C (97.7 F) 06/05/2024 8:22 AM RESOLUTION AGENT Respiratory Rate 16 06/05/2024 8:22 AM RESOLUTION AGENT Oxygen Saturation 98% 06/05/2024 8:22 AM RESOLUTION AGENT Inhaled Oxygen Concentration - - Weight 104.3 kg (230 lb) 06/19/2024 8:33 AM RESOLUTION AGENT Height 175.3 cm (5' 9.02 ) 06/19/2024 8:33 AM CS T Body Mass Index 33.95 06/19/2024 8:33 AM RESOLUTION AGENT Plan of Treatment Upcoming Encounters Date Type Department Care Team (Latest Contact Info) Description 10/02/2024 7:55 AM CDT Hospital Encounter [address] [address] Hussein Smith MD [address] [place] [address] [address] [place] [address] 10/02/2024 7:55 AM CDT - 10/02/2024 8:30 AM CDT Surgery [address] [address] Hussein Smith MD [address] [facility] [address] [place] [address] ESOPHAGOGASTRODUODENOSCOPY Scheduled Procedures Name Priority Associated Diagnoses [...] Most Recently Relevant to Health Maintenance Insurance [facility] CLAIMS Care Teams Vending Machine Assembler Relationship Specialty Start Date End Date Vidhi Frias MD [address] [place] [address] PCP - General Family Medicine 11/23/20
--- OUTSIDE RECORDS SUMMARY | 2024-09-11 04:35 | XMS_ITS ---
Author Organization [facility] Address [address] [place] [address] Care Team Providers Care Senior Oracle Applications Developer Name Role Phone Vidhi Frias Primary Care Provider Ramez Martinez Unavailable [phone] [employer]-Migration, Provider Unavailable Unavailab le REASON FOR VISIT [facility] Conversion Encounter Medications Medication SIG (Take, Route, [...] Not-Taking Encounters Encounter Location Date Provider Diagnosis [facility] [place] [address] [place] [address] 12/30/2023 Provider ZZ-Migration Allergic contact dermatitis due [...] * Karishma OCAMPODOB:[birth year] (34 yo F)Acc No.[id number]:12/30/2023 Patient: Karishma HARRY Provider: Piotr Black :1990 A ge:33 Y S ex:Female Date:12/30/2023 Address:[address] [place] [address] Georgi LOPEZ [id number] Pcp:Vidhi Frias Subjective: * Chief Complaints: * 1 . Multum To Medispan Conversion Encounter. * Medical History: * Medications: N ot-Taking/PRN Vitamin D3 1250 MCG CAPSULE 1 CAP(S) ORALLY ONCE A WEEK , Notes to Pharmacist: *Please review and pick correct strength-formulation from Picklifyspan options. If intended option is not shown, [...] *Please review and pick correct strength-formulation from Picklifyspan options. If intended option is not shown, discontinue and re-order from Quick Search*; C ontinue Melatonin Tablet, 5 MG, 1 tab(s), orally, once a day (at bedtime); C ontinue Mirena (52 MG) DEVICE, 52 MG, 1 EA, BY INTRAUTERINE ADMINISTRATION, ONCE, Notes to Pharmacist: *Please review and pick correct strength-formulation from Picklifyspan options. If intended option is not shown, [...] * Electronic signature of Khanh KNOWLES-Migration on 09/11/2024 at 04:34 AM [employer] SERVICE SPRAY SUPERVISOR Sign off status: Pending * Provider: Piotr braden Migration Date: 0 12/30/2023 Generated for Ericka raman/Shaista/Andreea on: 0 09/11/2024 04:34 AM [employer] TREE SERVICE SPRAY SUPERVISOR
--- NOTE | 2024-09-11 05:15 | ADMGEN ---
This patient, Kairshma Ocampo, was admitted to [facility] Surg Room 320-01. Patient/family oriented to hospital policies and general routines including ID bracelet, bed and alarms, visiting hours, pain management, procedures, bathroom and other care routines, personal items, smoking policy, room service/diet, and visiting hours. Information on how to activate the Rapid Response Team has been discussed. Patient/Family are encouraged to report perceived risks to care and to ask questions if they do not understand what they are told or what they should do.
[2024-09-11 07:21] LABS: Basophils Absolute Auto 0.1 K/mm3 (0.0-0.1); Basophils Percent Auto 0.4 % (0.2-1.2); Eosinophils Absolute Auto 0.3 K/mm3 (0-0.3); Eosinophils Percent Auto 2.5 % (0-4.4); Hematocrit 33.4 % (37.0-47.0); Hemoglobin 11.2 g/dL (12.0-15.0); Immature Granulocyte Absolute 0.05 K/mm3 (0.00-0.031); Immature Granulocyte Percent A 0.4 % (0-0.5); Lymphocytes Absolute Auto 2.68 K/mm3 (0.9-3.2); Lymphocytes Percent Auto 22.8 % (18.3-44.2); Mean Corpuscular HGB Conc 33.5 g/dl (32-36); Mean Corpuscular Hemoglobin 28.7 pg (26-34); Mean Corpuscular Volume 85.6 fl (80-100); Mean Platelet Volume 10.2 fl (7.4-10.4); Monocytes Absolute Auto 0.9 K/mm3 (0.1-0.6); Monocytes Percent Auto 7.4 % (2.6-8.5); Neutrophils Absolute Auto 7.8 K/mm3 (1.3-6.7); Neutrophils Percent Auto 66.5 % (45.5-73.1); Platelet Count Result 240 k/mm3 (150-375); Red Cell Distribution Width 13.8 % (11.5-14.5); White Blood Count 11.7 K/mm3 (4.5-10.0)
--- NOTE | 2024-09-11 10:53 | P.HP_ITS ---
H&P: HPI History of Present Illness Date/Time: 09/11/24 10:53 Chief Complaint: vaginal bleeding, abdominal pain Narrative: Patient is a 34 year old female who presents for worsening abdominal pain and increase in vaginal bleeding since 09/10 afternoon. She is s/p cytotec on 08/26 for a missed miscarriage. 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 She is changing her pad every hour with large clots. In the ER, her hemoglobin was stable. Pelvic US and CT AP w contrast both demonstrated retained products of conception. Otherwise normal imaging. Overnight, she has been changing her pads every hour. She received cytotec buccally overnight. They have not been soaked through however she does still have large clots. Her labs have been stable overnight. Review of Systems Review of Systems: All systems reviewed & are unremarkable except as noted in HPI and below PMFSH Social History Social History Smoking status: Never smoker Alcohol intake: never Substance use: never Do You Feel Safe in your Home?: Yes Lack of Transportation: No Lack of Food: Never True Current Housing: I Have Housing Concerned About Future Housing: No Difficulty Paying Gas/Electric Bills: No Difficulty Paying for Meds: No Currently Unemployed: No Education: Bachelor's Degree Difficulty w/ Childcare or Family Care: No Spiritual care concerns: No Meds Home Medications and Allergies Home Medications ?Medication ?Instructions ?Recorded ?Confirmed ?Type cetirizine 10 mg tablet 10 mg PO DAILY 09/11/24 09/11/24 History fluticasone propionate 50 1 spray intranasal DAILY 09/11/24 09/11/24 History mcg/actuation nasal spray,suspension hydroxyzine HCl 25 mg tablet 25 mg PO Q8H PRN anxiety 09/11/24 09/11/24 History omeprazole 40 mg capsule,delayed 40 mg PO DAILY 09/11/24 09/11/24 History release sertraline 50 mg tablet 50 mg PO DAILY 09/11/24 09/11/24 History Allergies Allergy/AdvReac Type Severity Reaction Status Date / Time NKA Allergy Unknown Unknown Uncoded 09/10/24 16:17 Vital Signs Vital Signs - 24 hr 09/10/24 16:21 09/10/24 16:23 09/10/24 18:35 Temperature 98.6 F 97.6 F Pulse Rate 102 H 98 91 Respiratory Rate 20 16 Blood Pressure 145/75 H 112/68 Pulse Oximetry 100 100 Oxygen Delivery Room Air 09/11/24 01:14 09/11/24 02:22 09/11/24 03:14 Temperature 97.8 F Pulse Rate 74 80 81 Respiratory Rate 17 16 20 Blood Pressure 113/67 104/66 104/66 Pulse Oximetry 100 99 99 Oxygen Delivery 09/11/24 05:20 09/11/24 05:36 Temperature 98 F Pulse Rate 75 75 Respiratory Rate 18 18 Blood Pressure 108/55 L Pulse Oximetry 100 100 Oxygen Delivery Room Air Exam Const: General: comfortable and no acute distress Eyes: General: appearance normal, both eyes and all related structures Resp: Effort & Inspection: normal respiratory effort Extrem: General: normal to inspection Psych: Mental Status: mental status grossly normal H&P: Results Labs Labs: Short CBC 09/10/24 09/11/24 Range/Units 21:40 07:12 WBC 8.1 11.7 H (4.5-10.0) K/mm3 Hgb 11.7 L 11.2 L (12.0-15.0) g/dL Hct 35.1 L 33.4 L (37.0-47.0) % Plt Count 200 240 (150-375) k/mm3 BMP 09/10/24 21:40 Sodium 139 Potassium 3.9 Chloride 105 Carbon Dioxide 22 BUN 10 Creatinine 0.55 L Glucose 96 Calcium 9.2 Liver Function 09/10/24 Range/Units 21:40 Total Bilirubin 0.7 (0.2-1.3) mg/dL AST 20 (14-36) U/L ALT 13 (6-35) U/L Alkaline Phosphatase 45 (38-126) U/L Albumin 4.7 (3.5-5.1) g/dL Urine 09/11/24 Range/Units 00:34 Urine Color Yellow (Yellow) Urine Appearance Clear (Clear) Urine pH 5.0 (5.0-9.0) Ur Specific [place] > 1.045 H (1.001-1.035) Urine Protein 1+ H (Negative) mg/dL Urine Glucose (UA) Negative (Negative) mg/dL Assessment and Plan Assessment and plan (1) Retained products of conception: Status: Acute Assessment and Plan: - s/p medical management of missed miscarriage on 08/26 - 2 days of heavy bleeding after cytotec followed by 2 weeks of spotting - bleeding acutely worsened yesterday with heavy cramping - s/p cytotec overnight, bleeding still heavy - labs stable, VSS - discussed monitoring for cytotec effect for explusion of retained products vs surgical management with suction d&C - patient desires to proceed with suction D&C - risks and benefits of surgery discussed with patient who voices understanding and would like to proceed - will order doxycycline 100mg pre op and 200mg post op
--- NOTE | 2024-09-11 11:04 | WPDHPUPDATE1 ---
History and Physical Update Update Date/Time: 09/11/24 11:04 History and Physical has been reviewed, including an updated exam of the patient. There are NO changes in the patient's condition. Risks, benefits, and alternatives have been discussed and questions answered. Patient agrees to proceed with procedure.
[2024-09-11] MEDS: DOXYCYCLINE 100 MG/NS 100 ML 100 MG/100 ML BAG IVPB (11:51)
[2024-09-11] MEDS: fentaNYL CITRATE INJ (*CRX) 100 MCG/2 ML VIAL 25 MCG IV PUSH (13:02)
--- NOTE | 2024-09-11 13:16 | P.PNAN_ITS ---
Anes - Initial Pre Proc Eval Procedure: Operation Date: 09/11/24 13:30 Proposed Procedures p Suction Dilatation and Curettage - Donnie Reed MD Date/Time: 09/11/24 13:16 Surgeon: Donnie Reed MD Pre Op Diagnosis: retained products of conception, vaginal bleeding Patient Data Age: 34 Gender: F Height: 1.75 m Weight: 98.4 kg Last Vital Signs Temp 98 F 09/11/24 05:36 Pulse 75 09/11/24 05:36 Resp 18 09/11/24 05:36 BP 108/55 L 09/11/24 05:36 Pulse Ox 100 09/11/24 05:36 O2 Del Method Room Air 09/11/24 05:20 Allergies Allergy/AdvReac Type Severity Reaction Status Date / Time No Known Allergies Allergy Verified 09/11/24 12:46 Home Medications ?Medication ?Instructions ?Recorded ?Confirmed ?Type cetirizine 10 mg tablet 10 mg PO DAILY 09/11/24 09/11/24 History fluticasone propionate 50 1 spray intranasal DAILY 09/11/24 09/11/24 History mcg/actuation nasal spray,suspension hydroxyzine HCl 25 mg tablet 25 mg PO Q8H PRN anxiety 09/11/24 09/11/24 History omeprazole 40 mg capsule,delayed 40 mg PO DAILY 09/11/24 09/11/24 History release sertraline 50 mg tablet 50 mg PO DAILY 09/11/24 09/11/24 History Laboratory Tests 09/10/24 09/11/24 09/11/24 21:40 00:34 07:12 WBC 8.1 K/mm3 11.7 H K/mm3 (4.5-10.0) (4.5-10.0) RBC 4.11 L M/mm3 3.90 L M/mm3 (4.2-5.4) (4.2-5.4) Hgb 11.7 L g/dL 11.2 L g/dL (12.0-15.0) (12.0-15.0) Hct 35.1 L % 33.4 L % (37.0-47.0) (37.0-47.0) MCV 85.4 fl 85.6 fl (80-100) (80-100) MCH 28.5 pg 28.7 pg (26-34) (26-34) MCHC 33.3 g/dl 33.5 g/dl (32-36) (32-36) RDW 13.6 % 13.8 % (11.5-14.5) (11.5-14.5) Plt Count 200 k/mm3 240 k/mm3 (150-375) (150-375) MPV 9.9 fl 10.2 fl (7.4-10.4) (7.4-10.4) Immature Gran % (Auto) 0.2 % 0.4 % (0-0.5) (0-0.5) Neut % (Auto) 64.2 % 66.5 % (45.5-73.1) (45.5-73.1) Lymph % (Auto) 26.1 % 22.8 % (18.3-44.2) (18.3-44.2) [place] % (Auto) 7.0 % 7.4 % (2.6-8.5) (2.6-8.5) Eos % (Auto) 2.0 % 2.5 % (0-4.4) (0-4.4) Baso % (Auto) 0.5 % 0.4 % (0.2-1.2) (0.2-1.2) Lymph # (Auto) 2.12 K/mm3 2.68 K/mm3 (0.9-3.2) (0.9-3.2) [place] # (Auto) 0.6 K/mm3 0.9 H K/mm3 (0.1-0.6) (0.1-0.6) Eos # (Auto) 0.2 K/mm3 0.3 K/mm3 (0-0.3) (0-0.3) Baso # (Auto) 0.0 K/mm3 0.1 K/mm3 (0.0-0.1) (0.0-0.1) Abs Immat Gran (auto) 0.02 K/mm3 0.05 H K/mm3 (0.00-0.031) (0.00-0.031) Absolute Neuts (auto) 5.2 K/mm3 7.8 H K/mm3 (1.3-6.7) (1.3-6.7) Absolute Nucleated RBC 0.000 K/mm3 0.000 K/mm3 (0.0-0.012) (0.0-0.012) Nucleated RBC % 0.0 % 0.0 % (0.0-0.2) (0.0-0.2) PT 14.5 Seconds (11.1-14.7) INR 1.1 APTT 31.9 Seconds (22.3-36.8) Sodium 139 mmol/L (137-145) Potassium 3.9 mmol/L (3.4-5.0) Chloride 105 mmol/L (98-107) Carbon Dioxide 22 mmol/L (22-30) Anion Gap 12 mmol/L (4-12) BUN 10 mg/dL (7-17) Creatinine 0.55 L mg/dL (0.7-1.0) Estim Creat Clear Calc 153 ml/min Estimated GFR > 60 (59 - ) Glucose 96 mg/dL (65-110) Lactic Acid 0.9 mmol/L (0.7-2.0) Calcium 9.2 mg/dL (8.4-10.2) Total Bilirubin 0.7 mg/dL (0.2-1.3) AST 20 U/L (14-36) ALT 13 U/L (6-35) Alkaline Phosphatase 45 U/L (38-126) C-Reactive Protein 2.1 H mg/dL (<1.0) Total Protein 8.0 g/dL (6.3-8.2) Albumin 4.7 g/dL (3.5-5.1) Urine Color Yellow (Yellow) Urine Appearance Clear (Clear) Urine pH 5.0 (5.0-9.0) Ur Specific [place] > 1.045 H (1.001-1.035) Urine Protein 1+ H mg/dL (Negative) Urine Glucose (UA) Negative mg/dL (Negative) Urine Ketones Trace H mg/dL (Negative) Ur Blood (Man) 3+ H (Negative) Urine Nitrate Negative (Negative) Urine Bilirubin Negative (Negative) Urine Urobilinogen 1.0 mg/dL (<2.0) Leukocyte Esterase Rfl Negative GENEVIEVE/UL (Negative) Urine RBC 11-20 H /hpf (0-2) Urine WBC 0-5 /hpf (0-3) Ur Squamous Epith Cells Few /hpf (Few) Urine Bacteria 1+ /hpf Urine Casts ---- Blood Type O Negative Antibody Screen Negative Screen Not Reportable Baby's Blood Type Not Reportable Baby's NIKIA Not Reportable Doses of RhIg Required 1 Patient hx anesthesia problems: none Family hx anesthesia problems: none Results Review: All pre-operative results and documents have been reviewed as part of the pre- operative evaluation. [facility] Social History Social History Smoking status: Never smoker Alcohol intake: never Substance use: never Do You Feel Safe in your Home?: Yes Lack of Transportation: No Lack of Food: Never True Current Housing: I Have Housing Concerned About Future Housing: No Difficulty Paying Gas/Electric Bills: No Difficulty Paying for Meds: No Currently Unemployed: No Education: Bachelor's Degree Difficulty w/ Childcare or Family Care: No Spiritual care concerns: No Anes - Eval Final PreProcedure Day of Procedure 09/11/24 13:16 Patient weight: obese Lungs: normal air movement Airway: Mallampati scale class II Neurological: alert and oriented Last oral intake: >/= 8 hours ASA classification: III Emergent: no Anesthetic plan: proceed Anesthesia type and monitoring: general GIVS and standard monitoring Results Review: All pre-operative results and documents have been reviewed as part of the pre- operative evaluation. SATYA on CPAP, BMI 32, anxiety/depression. Informed Consent: The patient's anesthetic plan and its attendant risks and benefits were discussed with the patient/family/POA. Questions were solicited and answers provided to the satisfaction of the patient/family/POA.
[2024-09-11] MEDS: LIDO 1%/EPINEPHRINE 1:100,000 20 ML VIAL 10 ML INFILTRATE (13:42)
--- NOTE | 2024-09-11 14:01 | W.PM.PROC2 ---
Procedure Note - Detailed Date of Procedure 09/11/24 Pre-op Diagnosis retained products of conception, vaginal bleeding Post-op Diagnosis Same Procedure Performed suction D&C Surgeon Donnie Reed MD Anesthesia MAC (with paracervical block) Indications retained products of conception following missed miscarriage Findings products of conception at external os, mild uterine bleeding; bleeding minimal at end of procedure Description of Procedure The patient was then taken to the operating room with IVFs running. She was placed in the dorsal supine position where she received general anesthesia without any difficulty.?? The patient was placed in the dorsal lithotomy position using sahara stirrups. EUA revealed the above findings. She was then prepped and draped in a normal sterile fashion. A time-out procedure was performed and all members of the OR team agreed on the patient and plan. A bivalved speculum was then inserted into the patient's vagina.? The anterior lip of the cervix was grasped with a single tooth tenaculum. The cervical os was dilated using phoenix dilators to accommodate a 8mm curette.? The suction curette was tested outside the patient and found to be working properly.? The curette was then advanced into the intrauterine cavity and circumferentially removed.? All products of conception were removed until little tissue was seen passing through the tubing.? The specimen was sent to pathology.? The single tooth tenaculum was removed from the anterior lip of the cervix, which was then hemostatic.? The bivalve speculum was removed.? The patient tolerated the procedure well.? Sponge, lap, needle, and instrument counts were correct.? The patient was awakened from anesthesia and taken to the recovery room in stable condition. Rh status: negative, received Rhogam Estimated Blood Loss 50 Pathology Yes Complications No immediate complications Condition Stable Disposition Floor (plan for d/c from floor)
--- NOTE | 2024-09-11 14:07 | P.DS_ITS ---
DS: Admitting Diagnosis Discharge Date 09/11/24 Admitting Diagnosis retained products of conception s/p missed miscarriage DS: Discharge Diagnosis Discharge Diagnosis (1) Retained products of conception: Status: Acute DS: Summary Hospital Course Hospital Course: Patient presented to the ER for acutely worsening vaginal bleeding and abdominal pain following medical management of a missed miscarriage on 08/26. She denies inciting factors. She reports soaking 1 pad per hour with clots. In the ER her vital signs were stable as well as her hemoglobin. Imaging demonstrated retained products of conception on both pelvic US and CT AP. She was admitted overnight for observation and repeat cytotec management. She decided to pursue surgical management with D&C due to pain and bleeding. Suction D&C was performed without complication, and the patient was stable for discharge on HD#1/POD#0. Time Spent with Patient Time attestation: Total time spent providing and/or coordinating discharge services: DS: Data Data Completed and Pending Pending studies at discharge: Pending at discharge 09/11/24 13:39 Surgical [PTH] Routine Labs on day of discharge: Labs from last 24 hours 09/11/24 09/11/24 09/10/24 07:12 00:34 21:40 WBC 11.7 H 8.1 RBC 3.90 L 4.11 L Hgb 11.2 L 11.7 L Hct 33.4 L 35.1 L MCV 85.6 85.4 MCH 28.7 28.5 MCHC 33.5 33.3 RDW 13.8 13.6 Plt Count 240 200 MPV 10.2 9.9 Immature Gran % (Auto) 0.4 0.2 Neut % (Auto) 66.5 64.2 Lymph % (Auto) 22.8 26.1 [place] % (Auto) 7.4 7.0 Eos % (Auto) 2.5 2.0 Baso % (Auto) 0.4 0.5 Lymph # (Auto) 2.68 2.12 [place] # (Auto) 0.9 H 0.6 Eos # (Auto) 0.3 0.2 Baso # (Auto) 0.1 0.0 Abs Immat Gran (auto) 0.05 H 0.02 Absolute Neuts (auto) 7.8 H 5.2 Absolute Nucleated RBC 0.000 0.000 Nucleated RBC % 0.0 0.0 PT 14.5 INR 1.1 APTT 31.9 Sodium 139 Potassium 3.9 Chloride 105 Carbon Dioxide 22 Anion Gap 12 BUN 10 Creatinine 0.55 L Estim Creat Clear Calc 153 Estimated GFR > 60 Glucose 96 Lactic Acid 0.9 Calcium 9.2 Total Bilirubin 0.7 AST 20 ALT 13 Alkaline Phosphatase 45 C-Reactive Protein 2.1 H Total Protein 8.0 Albumin 4.7 Urine Color Yellow Urine Appearance Clear Urine pH 5.0 Ur Specific [place] > 1.045 H Urine Protein 1+ H Urine Glucose (UA) Negative Urine Ketones Trace H Ur Blood (Man) 3+ H Urine Nitrate Negative Urine Bilirubin Negative Urine Urobilinogen 1.0 Leukocyte Esterase Rfl Negative Urine RBC 11-20 H Urine WBC 0-5 Ur Squamous Epith Cells Few Urine Bacteria 1+ Urine Casts ---- Blood Type O Negative Antibody Screen Negative Screen Not Reportable Baby's Blood Type Not Reportable Baby's NIKIA Not Reportable Doses of RhIg Required 1 Discharge Plan Discharge Attending physician on discharge: Donnie Reed Consulting providers: Donnie Reed Discharging Clinician: Donnie Reed Patient Disposition: Home, Self-Care Activity: may shower, as tolerated and pelvic rest Diet: as tolerated Discharge Instructions: D & C INSTRUCTION SHEET The cervix does not immediately close after a D&C, so it is important to follow these instructions to avoid an infection or other complications. 1.? Bleeding may be irregular after the procedure.? A few women do not bleed at all following the procedure, which is normal for them. 2.? Your next normal period should begin in 4-8 weeks (if you were still having periods).? It is possible to get before your first period begins.? Therefore you should use control if is undesirable. 3.? You may have some cramping, similar to menstrual cramps.? If so, you may take your usual pain medication.? If this is not sufficient, you should call our office. 4.? You may experience discomfort in your legs.? This is due to the position of your legs in the stirrups during the surgery. 5.? If you have fever over 100.4 degrees for more than a few hours, call our office. 6.? You may eat or drink anything that you like and return to your usual activities.? Be guided by how you feel. 7.? You may return to work in 1-2 days. 8.? Avoid tampons, douching or sexual intercourse for 2 weeks. 9.? You may shower or tub bathe. 10. If you have heavy bleeding (saturating more than 2 pads in 1 hour) or pass large clots, please call the office. Patient Instructions: Antibiotic Form Patient Language: Faroese Stand Alone Forms: General Discharge Information Follow-up/Referrals: oDnnie Reed MD [Physician] - 2 Weeks Discharge Medications: Continued cetirizine 10 mg tablet 10 mg PO DAILY fluticasone propionate 50 mcg/actuation spray,suspension 1 spray INTRANASAL DAILY sertraline 50 mg tablet 50 mg PO DAILY omeprazole 40 mg capsule,delayed release(DR/EC) 40 mg PO DAILY hydroxyzine HCl 25 mg tablet 25 mg PO Q8H PRN (Reason: anxiety) Date of admission: 09/11/24 03:16 Primary Care Provider: AltagraciaVidhi Admitting Provider: Donnie Reed Attending physician on admission: Donnie Reed Condition: Stable
[2024-09-11] MEDS: DOXYCYCLINE HYCLATE 100 MG TABLET 200 MG PO (15:12)
== END 2024-09-11 17:55 | disposition home or self-care (01) ==
LOC: ANHED 09-11 03:15 → ANH3MEDSUR 09-11 04:32
PROVIDERS: Registered Nurse; Admitting Provider Obstetrics & Gynecology; Emergency Provider Physician Assistant; PCP Family Medicine; Visit Provider Obstetrics & Gynecology
PROC: (CPT 59812; principal; 2024-09-11 13:30)
DX: O03.4 Incomplete spontaneous abortion without complication (principal); Z79.899 Other long term (current) drug therapy
CPT/HCPCS: 59812; 36415; 74177; 76856; 80053; 81001; 83605; 85025; 85461; 85610; 85730; 86140; 86850; 86900; 86901; 88305; 90384; 96361; 96365; 96366; 96372; 99285; A9270; G0378; J2004; J2250; J2405; J2704; J2790; J3010; J7030; Q9967

== ENCOUNTER 2025-05-22 10:11 | Outpatient (RCR) | payer OTHER, SELFPAY ==
--- OUTSIDE RECORDS SUMMARY | 2023-12-30 15:30 | XMS_ITS ---
Author Organization Formerly [facility], 1928–[facility] ([address]) Address [address] [place] [address] Care Team Providers Care Dry Starch Operator Name Role Phone Vidhi Frias Primary Care Provider Ramez Martinez Unavailable [phone] ZZ-Migration, Provider Unavailable Unavailab le [facility] Encounter Medications Medication SIG (Take, Route, Frequency, Duration) Notes Start Date End Date Status Triamcinolone Acetonide 0.1 % 1 cory applied topically twice a day; Duration: 30 day(s) Active Zoloft 50 MG 1 tab(s) orally once a day Active tiZANidine HCl 2 MG 2 tab(s) orally every 8 hours Active DHA 200 MG 1 cap(s) orally once a day Active Pepcid AC 10 MG 1 tab(s) orally once Active Magnesium Gluconate 500 MG 1 TAB(S) ORALLY 2 TIMES A DAY *Please review and pick correct strength-formula tion from Medispan options. If intended option is not shown, discontinue and re-order from Quick Search* Active hydrOXYzine HCl 25 MG 1 tab(s) orally 4 times a day Not-Taking Levocetirizine Dihydrochloride 5 MG 1 tab(s) orally once a day (in the evening) Not-Taking Mirena (52 MG) 52 MG 1 EA BY INTRAUTERINE ADMINISTRATION ONCE *Please review and pick correct strength-formula tion from Medispan options. If intended option is not shown, discontinue and re-order from Quick Search* Active Melatonin 5 MG 1 tab(s) orally once a day (at bedtime) Active Vitamin D3 1250 MCG 1 CAP(S) ORALLY ONCE A WEEK; Duration: 60 DAYS *Please review and pick correct strength-formula tion from Medispan options. 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 Assessments Encounter Date Diagnosis (ICD Code) Assessment Notes Treatment Notes Treatment Clinical Notes Section Notes 12/30/2023 Allergic contact dermatitis due to other chemical products (ICD-10 - L23.5) Plan Of Treatment Medication Medication Name Sig Start Date Stop Date Notes Triamcinolone Acetonide 0.1 % 1 cory applied topically twice a day; Duration: 30 day(s) Zoloft 50 MG 1 tab(s) orally once a day tiZANidine HCl 2 MG 2 tab(s) orally ever y 8 hours DHA 200 MG 1 cap(s) orally once a day Pepcid AC 10 MG 1 tab(s) orally once Magnesium Gluconate 500 MG 1 TAB(S) ORALLY 2 TIMES A DAY *Please review and pick correct strength-formulatio n from Medispan options. If intended option is not shown, discontinue and re-order from Quick Search* Mirena (52 MG) 52 MG 1 EA BY INTRAUTERIN E ADMINISTRATION ONCE *Please review and pick correct strength-formulatio n from Medispan options. If intended option is not shown, discontinue and re-order from Quick Search* Melatonin 5 MG 1 tab(s) orally once a day (at bedtime) Progress Notes * Karishma OCAMPODOB:[birth year] (34 yo F)Acc No.[id number]:12/30/2023 Patient: Karishma HARRY Provider: Piotr Black :1990 A ge:33 Y S ex:Female Date:12/30/2023 Address:[address] [place] [address] [facility] [id number] Pcp:Vidhi Frias Subjective: * Chief Complaints: * 1 . Multum To Medispan Conversion Encounter. * Medical History: * Medications: N ot-Taking/PRN Vitamin D3 1250 MCG CAPSULE 1 CAP(S) ORALLY ONCE A WEEK , Notes to Pharmacist: *Please review and pick correct strength-formulation from Medispan options. If intended option is not shown, discontinue and re-order from Quick Search*, Not-Taking/PRN Levocetirizine Dihydrochloride 5 MG Tablet 1 tab(s) orally once a day (in the evening) , Not-Taking/PRN hydrOXYzine HCl 25 MG Tablet 1 tab(s) orally 4 times a day Objective: * Vitals: Assessment: * Assessment: 1. A llergic contact dermatitis due to other chemical products - L23.5 (Primary) ? Plan: * Treatment: 2. O thers Continue Magnesium Gluconate TABLET, 500 MG, 1 TAB(S), ORALLY, 2 TIMES A DAY, Notes to Pharmacist: *Please review and pick correct strength-formulation from Medispan options. If intended option is not shown, discontinue and re-order from Quick Search*; C ontinue Melatonin Tablet, 5 MG, 1 tab(s), orally, once a day (at bedtime); C ontinue Mirena (52 MG) DEVICE, 52 MG, 1 EA, BY INTRAUTERINE ADMINISTRATION, ONCE, Notes to Pharmacist: *Please review and pick correct strength-formulation from Medispan options. If intended option is not shown, discontinue and re-order from Quick Search*; Continue Pepcid AC Tablet, 10 MG, 1 tab(s), orally, once; C ontinue DHA Capsule, 200 MG, 1 cap(s), orally, once a day; C ontinue tiZANidine HCl Tablet, 2 MG, 2 tab(s), orally, every 8 hours; C ontinue Zoloft Tablet, 50 MG, 1 tab(s), orally, once a day. * Billing Information: * Visit Code: * Procedure Codes: * Electronic signature of Khanh KNOWLES-Migration on 05/22/2025 at 01:17 PM LIVESTOCK BUYER Sign off status: Pending * Provider: Piotr braden Migration Date: 0 12/30/2023 Generated for Ericka raman/Shaista/Andreea on: 07/22/2024 01:17 PM LIVESTOCK BUYER
[2025-05-21 14:13] LABS: Hematocrit 33.4 % (37.0-47.0); Hemoglobin 11.1 g/dL (12.0-15.0)
[2025-05-21 14:29] LABS: Glucose 1 Hour PP 50gm Dose 103 mg/dL
[2025-05-21 15:14] LABS: HIV 1/2 Ab P24 Ag Result Negative (Negative)
--- OUTSIDE RECORDS SUMMARY | 2025-05-22 13:16 | XMS_ITS | Encounter Summary ---
Author Organization [facility] Healthcare Address [address] [place] [address] Care Team Providers Care Tongue And Groove Machine Operator Name Role Phone Vidhi Frias MD Primary Care [facility] Encounter Details Date Type Department Care Team (Late st Contact Info) Description 03/29/2025 Results Follow-Up [facility] [address] [place] [place] [address] Flores Zuluaga, COMPLIANCE ADVISOR [address] [place] [address] Urine culture Urine, clean voided Social History Tobacco Use Types Packs/Day Years Used Date Smoking Tobacco: Never Smokeless Tobacco: Never AUDIT-C Answer Date Recorded Q1: How often do you have a drink containing alc ohol? Never 10/29/2024 Q2: How many drinks containi ng alcohol do you have on a typical day when you are drinking? 1 or 2 10/29/2024 Q3: How often do you have six or more drinks on one occasion? Never 10/29/2024 PHQ-2 Answer Date Recorded PHQ-2 Total Score (If total score is 3 or more points, staff should administer the PHQ-9) 0 06/05/2024 Personal Safety Answer Date Recorded Have you ever been in or are you currently in a harmful physical or emotional relationship or is someone making you feel afraid or unsafe? Denies 10/02/2024 Estimated Date of Delivery Comme nts Yes 08/07/2025 Sex and Gender Information Value Date Recorded Sex Assigned at Not on file Legal Sex Female 11:08 AM CDT Gender Identity Female 10/06/2021 11:30 AM CDT Sexual Orientation Straight 03/16/2022 9: 36 PM CDT documented as of this encounter Miscellaneous Notes * Result Encounter Note - Pricila Turcios MA - 03/30/2025 7:28 PM CDT Detailed message left for patient. * Result Encounter Note - Trang Mcguire NP - 03/30/2025 11:26 AM CDT Please alert patient that urine culture was negative. If urinary s/s persist, she should follow up with PCP. She should complete antibiotic therapy as prescribed to treat Strep Pharyngitis as diagnosed on date of service. * Result Encounter Note - Flores Zuluaga NP - 03/29/2025 6:23 PM CDT Preliminary report. Patient was prescribed amoxicillin documented in this encounter Plan of Treatment Not on file documented as of this encounter Visit Diagnoses Not on filedocumented in this encounter Care Teams Tongue And Groove Machine Operator Relationship Specialty Start Date End Date Vidhi Frias MD [address] [place] [address] PCP - General Family Medicine 11/23/20 documented as of this encounter
--- OUTSIDE RECORDS SUMMARY | 2025-05-22 13:17 | XMS_ITS | Patient Health Record ---
Author Organization [facility] [employer] [address] [employer] [place] ([address]) Address [address] [place] [address] Care Team Providers Care Certified Ophthalmic Technician Name Role Phone Vidhi Frias Primary Care Provider Car hunt Truong Ramez Unavailable [phone] Allergies No Known Allergies Reason For Referral [...] review and pick correct strength-formula tion from [employer] options. If intended option is not shown, discontinue and re-order from Quick Search* Active Melatonin 5 MG 1 tab(s) orally once a day (at bedtime) Active Magnesium Gluconate 500 MG 1 TAB(S) ORALLY 2 TIMES A DAY *Please review and pick correct strength-formula tion from [employer] options. If intended option is not shown, discontinue and re-order from Quick Search* Active hydrOXYzine HCl 25 MG 1 tab(s) orally 4 times a day Not-Taking Levocetirizine Dihydrochloride 5 MG 1 tab(s) orally once a day (in the evening) Not-Taking Vitamin D3 1250 MCG 1 CAP(S) ORALLY ONCE A WEEK; Duration: 60 DAYS *Please review and pick correct strength-formula tion from [employer] options. If intended option is not shown, discontinue and re-order from Quick Search* Not-Taking ZOLOFT 50 mg 1 tab(s) orally once a day Active TRIAMCINOLONE ACETONIDE TOPICAL 0.1% 1 cory applied topically twice a day; Duration: 30 day(s) Active DHA 200 mg 1 cap(s) orally once a day Active Triamcinolone Acetonide 0.1 % 1 cory applied topically twice a day; Duration: 30 day(s) Active TIZANIDINE 2 mg 2 [...] 1250 mcg 1 cap(s) orally once a week; Duration: 60 days Not-Taking Immunizations Vaccine Route Administration Date Status Comme nts NOC Pneumovax 23 IM Intramuscular 01/12/2022 Administered Flucelvax Unknown 03/29/2022 Administered Social History Tobacco Use: Social History Observation Description Date Details (start date - stop date) Never Smoker NA - NA Smoking Smart Form: Question Answer Notes Are you a: never smoker Problems Problem Type SNOMED Code ICD Code Onset Dates Problem Status W/U Status Risk Notes Problem Anemia (432818935) Anemia, unspecified (D64.9) Active confirmed Problem Anxiety disorder (732343894) Anxiety disorder, unspecified (F41.9) Active confirmed Problem Streptococcal sore throat (04591000) Acute recurrent streptococcal tonsillitis (J03.01) Active confirmed Problem Allergic contact dermatitis caused by chemical (2474179082559229 3) Allergic contact dermatitis due to other chemical products (L23.5) Active confirmed Problem Rosacea (101366370) Rosacea, unspecified (L71.9) Active confirmed Problem Chronic fatigue syndrome (disorder) (02076196) Chronic fatigue, unspecified (R53.82) Active confirmed Problem History of infectious disease (640520243) Personal history of other infectious and parasitic diseases (Z86.19) Active confirmed Problem Eruption of skin (131181134) Rash and other nonspecific skin eruption (R21) Active confirmed Problem Vitamin D deficiency (54788126) Vitamin D deficiency, unspecified (E55.9) Active confirmed Plan Of Treatment Pending Test Test Name [...] Insured Coverage Start Date Coverage End Date [facility] [place] [address] [place] [address] [phone] [id number] Karishma Ocampo Self - patient is the insured Medical (General) History Medical History History ICD Code Anemia, unspecified D64.9 Anxiety disorder, unspecified F41.9 Rosacea, unspecified L71.9 Vitamin D deficiency, unspecified E55.9 Personal history of other infectious and parasitic diseases Z86.19 Acute recurrent streptococcal tonsilliti s J03.01 Sleep apnea Surgical History Surgery Date(Month/Year) Lasik Tonsillectomy Tympanostomy Tube Placement [place] Tooth Extraction
--- OUTSIDE RECORDS SUMMARY | 2025-05-22 13:18 | XMS_ITS | Clinical Summary ---
Author Organization [facility] Virtual Care Address [address] [place] [phone] Phone Care Team Providers Care State [employer]oper Name Role Phone Vidhi Frias MD Primary Care Provi natasha Allergies No known active allergies Medications PNV no.95/ferrous fum/folic ac ( ORAL) Take by mouth Active famotidine-Ca carb-mag hydrox (PEPCID COMPLETE) 10-800-165 mg chewable tablet Take 1 tablet by mouth daily as needed for heartburn Active acetaminophen (TYLENOL) 500 mg tablet Take 1 tablet (500 mg total) by mouth every 6 (six) hours as needed for pain Active cetirizine (ZyrTEC) 10 mg tablet Take 1 tablet (10 mg total) by mouth daily Active triamcinolone (KENALOG) 0.1 % ointment 02/11/20 22 Active cetirizine (ZyrTEC) 10 mg tabletIndicati ons:Non-season al allergic rhinitis due to pollen Take 1 tablet (10 mg total) by mouth daily 30 tablet 11 06/19/20 24 025 Active fluticasone propionate (FLONASE) 50 mcg/actuation nasal sprayIndicatio ns:Sinus congestion USE 2 SPRAYS IN EACH NOSTRIL DAILY 16 g 11 08/30/19 25 Active modafiniL (PROVIGIL) 100 mg tabletIndicati ons:Sleepiness Due To Obstructive Sleep Apnea Take 1 tablet (100 mg total) by mouth daily 90 tablet 09/27/19 25 Active Additional Information Patient not taking.Reported on 05/16/2025 sertraline (ZOLOFT) 50 mg tabletIndicati ons:Generalize d anxiety disorder TAKE 1 TABLET DAILY 90 tablet 3 10/25/19 25 Active hydrOXYzine (ATARAX) 25 mg tablet TAKE 1 TABLET EVERY 8 HOURS NEEDED FOR ANXIETY 100 tablet 10 03/23/20 25 Active hydrocortisone (ANUSOL-HC) 1 % cream with perineal applicator INSERT RECTALLY TWICE A DAY 28.4 g 25 05/15/20 25 Active cyclobenzaprin e (FLEXERIL) 5 mg tablet 04/07/20 25 Active mupirocin (BACTROBAN) 2 % ointment Apply topically 3 (three) times a day Use for 7-10 days. 22 g 05/16/20 25 Active melatonin 5 mg tablet As needed 025 Discontinued(P atient Reported) cholecalcifero l (VITAMIN D-3) 400 unit capsule 09/28/19 025 Discontinued(P atient Reported) miSOPROStoL (CYTOTEC) 200 mcg tablet 08/21/19 25 025 Discontinued(T herapy completed) omeprazole (PriLOSEC) 20 mg capsuleIndicat ions:Abdominal pain, generalized,Na usea Take 1 capsule (20 mg total) by mouth daily 90 capsule 10/03/19 25 025 Discontinued(T herapy completed) tiZANidine (ZANAFLEX) 2 mg tablet Take 1 tablet (2 mg total) by mouth every 6 (six) hours as needed for muscle spasms 90 tablet 3 10/09/19 25 025 Discontinued(A lternate therapy) hydrocortisone (ANUSOL-HC) 1 % cream with perineal applicator Insert into the rectum 2 (two) times a day 28.4 g 2 10/30/19 25 025 Discontinued Active Problems Problem Noted Date Diagnosed Date Chronic fatigue 09/26/2024 Assessment & Plan (09/26/2024 11:34 AM CDT): Due to the patient feeling tired in the afternoons I have started the patient on modafinil 100 mg in the morning time. I did advise the patient that she can break the tablet in half for the 1st few mornings see how will factor. The patient states that she will only use the modafinil if she is going to be working. The patient states that that will average about 3 times a week. Gastroesophageal reflux disease 06/26/2024 Non-seasonal allergic rhinitis due to pollen 10/2023 Assessment & Plan (06/19/2024 9:11 AM JUNIOR NETWORK ENGINEER): Continue Nasal saline spray (Simply saline, [employer], [place], Deputy) 2 second sprays or 2 squeezes into [...] 05/24/2023 Assessment & Plan (06/19/2024 9:11 AM JUNIOR NETWORK ENGINEER): Continue Nasal saline spray (Simply saline, [employer], [place], Deputy) 2 second sprays or 2 squeezes into [...] dive Assessment & Plan (05/24/2023 10:18 AM JUNIOR NETWORK ENGINEER): Continue nasal saline Followed by Flonase CT sinus - call with results Sinus congestion 09/15/2022 Assessment & Plan (09/21/2023 11:03 AM JUNIOR NETWORK ENGINEER): She is following with ENT for her sinuses and continues to use Flonase 2 puffs in each nostril at bedtime. Assessment & Plan (01/25/2023 12:22 PM CDT): Nasal saline spray (Simply saline, [employer], [place], Deputy) 2 second sprays or 2 squeezes into [...] bilaterally Assessment & Plan (09/15/2022 12:12 PM JUNIOR NETWORK ENGINEER): I have encouraged the patient to continue with the allergy medicines on a daily basis. I have ordered Flonase. I have ordered a sinus CT without contrast. Patient will continue with saline rinses I have also referred the patient back to ENT. Obstructive sleep apnea 10/26/2021 Assessment & Plan (09/26/2024 11:34 AM CDT): The patient continue to wear CPAP auto titrating range 5-11 cm water pressure while sleeping. Her DME is [employer]. Assessment & Plan (09/21/2023 11:02 AM JUNIOR NETWORK ENGINEER): The patient continues to benefit from the auto titrating CPAP unit with a range of 5-11 cm water pressure. Her DME supplier is [employer]. She will follow up here in 1 year after returning from her appointment. Assessment & Plan (09/15/2022 12:12 PM JUNIOR NETWORK ENGINEER): Due to the sinus cavities feeling full and swollen, I have decreased the pressure setting to 5-13 cm water pressure. DME [facility]. I have also ordered a full set of supplies. Assessment & Plan (03/17/2022 11:30 AM CDT): Due to the patient stating that her nose is drying out getting nosebleeds, I have decreased the pressure to 5-13 cm water pressure. DME [employer]. The patient and I also discussed [id number] products for dry nasal cavities. Assessment & [...] 02/02/2021 Assessment & Plan (06/05/2024 8:40 AM JUNIOR NETWORK ENGINEER): Chronic. Stable. Continue sertraline 50 mg daily [...] doing Call for questions Hyperbilirubinemia 03/12/2019 Class 2 severe obesity due t o excess calories with serious comorbidity and body mass index (BMI) of 36.0 to 36.9 in adult 02/28/2019 Assessment & Plan (06/05/2024 8:40 AM JUNIOR NETWORK ENGINEER): BMI Follow-up includes: education provided. Emiliea 02/28/2019 Anxiety disorder 02/12/2019 Assessment & Plan (06/05/2024 8:40 AM JUNIOR NETWORK ENGINEER): Chronic. Stable. Continue sertraline 50 mg daily [...] for questions or concerns Muscle pain 02/12/2019 Estimated Date of Delivery Comme nts Yes 08/07/2025 Resolved Problems Problem Noted Date Diagnosed Date Resolved Date Snoring 05/18/2021 03/17/2022 Assessment & Plan (09/23/2021 8:57 AM JUNIOR NETWORK ENGINEER): The patient presents with excessive daytime hypersomnia [...] Encounters Date Type Department Care Team Description 05/16/2025 1:30 PM CDT Office Visit [facility] [address] [phone] Ellie Bonilla PA Skin lesion (Primary Dx); Second trimester ; Class 2 severe obesity due to excess calories with serious comorbidity and body mass index (BMI) of 36.0 to 36.9 in adult; Mild episode of recurrent major depressive disorder 03/29/2025 Results Follow-Up [facility] [place] [address] [place] [phone] Flores Zuluaga NP Urine culture Urine, clean voided 03/28/2025 2:50 PM CDT - 03/28/2025 11:59 [place] [address] UTI symptoms Discharge Disposition: Discharge to home or self care 03/28/2025 2:30 PM CDT Office Visit [facility] [place] [address] [place] [phone] Candace Martin NP Strep pharyngitis (Primary Dx); UTI symptoms from Last 3 Months Immunizations Immunization Administration Dates Next Due HPV, Unspecified 07/19/2012 HPV9 09/03/2019,04/25/2019 Hep B, Unspecified 07/19/2012,01/10/2012, 012 IPV 11/18/2011 Influenza, Quadrivalent, Spl it, Preservative Free, Intramuscular 03/29/2022,04/09/2018 Influenza, Trivalent, IM (MDV) 04/18/2025,2022 Influenza, Trivalent, Preser vative Free, Intramuscular 06/05/2024 Influenza, Unspecified 03/31/2021,2018,04/10/2018,03/25,03/26/2016,05/23/2015,05/23/2015 ,04/19/2014,04/19/2014,05/18/2013,08/2012,04/05/2012,04/05/2012, 2,11/18/2011 MMR 02/19/2017,12/17/2016 Meningococcal MCV4, Unspecified 11/18/2011 Moderna SARS-CoV-2 Monovalen t Vaccination (12+ YRS) 10/28/2020,09/30/2020 PPD TEST 10/20/2018, 6,02/04/2015,11/20 Pneumococcal Polysaccharide PPV23 01/12/2022 Td, adsorbed 12/10/2002 Tdap 11/18/2011 Typhoid, Unspecified 03/28/2015 Surgical History Surgery Date Site/Laterality Comments TYMPANOSTOMY TUBE PLACEMENT TONSILLECTOMY LASIK WISDOM TOOTH EXTRACTION UPPER GASTROINTESTINAL ENDOSCOPY 10/02/2024 DILATION AND CURETTAGE OF UTERUS Medical History Medical History Date Comments Anxiety Anemia Rosacea Dry eyes Neck pain SATYA (obstructive sleep apnea) GERD (gastroesophageal reflux disease) Depression Family History Medical History Relation Name Comments Allergy (severe) Brother Timur Zeeada Asthma Brother Timur Zeeada Crohn's disease Brother Timur Zeeada Vitamin D deficiency Brother Timur M[place]ada Cancer Father Eliud Garcia shingles Father Eliud Garcia Alzheimer's disease Maternal Grandfather Riky Gonzalez Hearing loss Maternal Grandfather Riky Gonzalez Arthritis Maternal Grandmother Melanie Vealsco Atrial fibrillation Maternal Grandmother Melanie Vealsco Cancer Maternal Grandmother Melanie Vealsco Diabetes Maternal Grandmother Melanie Vealsco Hearing loss Maternal Grandmother Melanie Vealsco Hypertension Maternal Grandmother Melanie Vealsco Diabetes Mother Hooper Meckel Hyperlipidemia Mother Doris Meckel Rashes / Skin problems Mother Hooper Meckel Thyroid disease Mother Doris Meckel Cancer Mother's Sister 1 Ena DeBenedetto Diabetes Mother's Sister 1 Ena DeBenedetto Miscarriages / Stillbirths Mother's Sister 2 Oralia Si ek Relation Name Status Comments Brother Timur Garcia Alive Father Eliud Garcia Alive Maternal Grandfather Riky Gonzalez Alive Maternal Grandmother Melanie Farmer Alive Mother Doris Meckel Alive Mother's Sister 1 Ena DeBenedetto Alive Mother's Sister 2 Oralia Vazquez Alive Social History Tobacco Use Types Packs/Day Years Used Date Smoking Tobacco: Never Smokeless Tobacco: Never Alcohol Use Standard Drinks/Week Comments Never 0 (1 standard drink = 0.6 oz pur e alcohol) PHQ-2 Answer Date Recorded PHQ-2 Total Score (If total score is 3 or more points, staff should administer the PHQ-9) 0 05/16/2025 AUDIT-C Answer Date Recorded Q1: How often do you have a drink containing alcohol? Never 05/16/2025 Q2: How many drinks containi ng alcohol do you have on a typical day when you are drinking? Patient does not drink Q3: How often do you have si x or more drinks on one occasion? Never 05/16/2025 Personal Safety Answer Date Recorded Have you [...] 03/16/2022 9: 36 PM CDT Obstetrics History Para Term AB IAB SAB Ectopic Multiple Livin g Live Births 1 Date Outcome GA Total Labor Labor/2nd/3rd Weight Sex Type Anes PTL Argelia A1 A5 Name Clin Current Last Filed Vital Signs Vital Sign Reading Time Taken Comments Blood Pressure 120/70 05/16/2025 1:33 PM CDT Pulse 98 05/16/2025 1:56 PM CDT Temperature 36.1 C (97 F) 05/16/2025 1:33 PM CDT Respiratory Rate 16 05/16/2025 1:33 PM CDT Oxygen Saturation 98% 05/16/2025 1:33 PM CDT Inhaled Oxygen Concentration - - Weight 110.7 kg (244 lb) 05/16/2025 1:33 PM CDT Height 175.3 cm (5' 9) 05/16/2025 1:33 PM CDT Body Mass Index 36.03 05/16/2025 1:33 PM CDT Plan of Treatment Health Maintenance Due Date Last Done Comments Hepatitis C Screening 1992 Regular Well Visit/Exam 18-64 2010 Varicella Vaccines (1 of 2 - 13+ 2-dose series) 03/19/2017 Cervical Cancer Screening 05/01/2021 05/01/2020 DTaP/Tdap/Td Vaccine (3 - Td or Tdap) 11/17/2021 11/18/2011, 12/10/2002 Covid-19 Vaccine ( - 2024- season) 2025 10/28/2020, 09/30/2020 Depression Screening 05/16/2026 05/16/2025, 06/05/2024, 04/25/2022, Additional history exists Hepatitis B Screening Completed 07/19/2012 , 01/10/2012, 11/23/2011 HPV Vaccines Completed 09/03/2019, 04/16, 07/19/2012 Pneumococcal vaccine <65 Aged Out 01/12/2022 No longer eligible based on patient's age to complete this topic Influenza Vaccine Completed 04/18/2025, , 04/14/2023, Additional history exists Procedures Procedure Name Priority Date/Time Associated Diagnosis Comments POCT RAPID STREP Routine 03/28/2025 2:50 PM CDT UTI symptoms POCT URINALYSIS DIPSTICK Routine 03/28/2025 2:50 PM CDT UTI symptoms URINE CULTURE Routine 03/28/2025 2:50 PM CDT UTI symptoms HM PAP SMEAR Routine 05/01/2020 from Last 3 Months or Most Recently Relevant to Health Maintenance Results * (ABNORMAL) POCT rapid strep A (03/28/2025 2:50 PM CDT) Pathologist [facility] Rapid Strep A, POC Positive(A ) Negative Swab 03/28/2025 2:50 PM CDT Candace Martin NP POINT OF CARE TEST ORDE RABPRECIOUS Final Result * (ABNORMAL) POCT urinalysis dipstick (03/28/2025 2:50 PM CDT) Color, Urine, POC Yellow Clarity, ur, POC Clear Clear Glucose, ur, POC Negative Negative Bilirubin, ur, POC Negative Negative Ketones, ur, POC Negative Negative Specific [place], POC 1.015 1.003 - 1.030 Blood, ur, POC Negative Negative pH, ur, POC 7.0 5.0 - 8.0 Protein, ur, POC Negative Negative Urobilinogen, urine, POC 0.2 0.2 - 1.0 mg/dL Nitrite, ur, POC Negative Negative Leukocytes, ur, POC Small(A) Negative Lot Number [id number] Urine 03/28/2025 2:50 PM CDT Candace Martin NP POINT OF CARE TEST ORDE RABLES Final Result * Urine culture Urine, clean voided (03/28/2025 2:50 PM CDT) Report Final Report: Less than 100,000 colonies/mL (clinically insignificant growth based on current clinical standards) Comment:Testing performed by : [facility], [address] [facility] [place] [address] Organism (CLINICALLY INSIGNIFICANT GROWTH EMILY FONTENOT Urine, clean voided 03/28/2025 2:50 PM CDT 03/29/2025 12:26 AM CDT Narrative EMILY FONTENOT - 03/30/2025 11:21 AM CDT Testing performed by [facility] ([phone]) Candace Martin NP LAB MICROBIOLOGY - GENE RAL ORDERABLES Final Result EMILY FONTENOT [id number] [address] Department of Laboratories [place] [phone] * HM PAP SMEAR (05/01/2020) us Historical Provider HEALTH MAINTENANCE Final Result from Last 3 Months or Most Recently Relevant to Health Maintenance Insurance [facility] CLAIMS Advance Directives For more information, please contact: [phone] * Full Code (Latest Code Status on File) Date Activated Date Inactivated Comments 10/02/2024 7:04 AM 10/02/2024 12:44 PM * Full Code Date Activated Date Inactivated Comments 10/02/2024 7:04 AM 10/02/2024 7:04 AM Care Teams State Trooper Relationship Specialty Start Date End Date Vidhi Frias MD [address] [place] [address] PCP - General Family Medicine 11/23/20
--- OUTSIDE RECORDS SUMMARY | 2025-05-22 13:18 | XMS_ITS | Data Portability ---
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 Discussed plan. Not available 04/17/2025 11:39:54 05/15/2025 05/15/2025 Patient is ___weeks . Discussed plan. Not available 05/15/2025 10:15:21 Plan of Treatment Reminders Order Date Submit Date Provider Last Modified By Organization Details Last Modified Time Details Appointments OB ROUTINE 2024 09:15A M Jazmin Dunlap CNM Not available Not available Not available Lab None recorded. Referral None recorded. Procedures None recorded. Surgeries None recorded. Imaging US, obstetric , follow-up [facility]24 [facility], [address], [place], [address], 05/16/2025 10:00:47 US, obstetric , follow-up 2024 025 [email or web address] [facility], [address], [place], [address], 04/17/2025 12:10:08 US, obstetric , 2nd or 3rd trimester 2024 025 [email or web address] [facility], [address], [address], [place], [address], 03/20/2025 17:51:02 Medication Orders None recorded. Patient TargetsNo targets recorded. Patient InstructionsNo instructions recorded. Reason for Referral None Reported. Results Created Date Observation Date Name Description Value Unit Range Abnormal Flag Note LastModifiedBy Organization Detail LastModifiedTime 03/20/2003/20/2025 US, obste tric, 2nd or 3rd trime ster No observ ation record ed. [email or web address] [facility] [address], [place], [address], 03/20/2025 17:45:25 03/20/20 25 03/20/2025 US, obste tric, follo w-up No observ ation record ed. [email or web address] Jessie [address], [place], [address], 03/21/2025 11:10:11 04/17/20 25 04/17/2025 US, obste tric, follo w-up No observ ation record ed. [email or web address] [facility] [address], [place], [address], 04/17/2025 12:09:37 04/17/20 25 04/17/2025 US, obste tric, follo w-up No observ ation record ed. [email or web address] Jessie [address], [place], [address], 04/18/2025 13:16:27 05/15/20 25 05/15/2025 US, obste tric, follo w-up No observ ation record ed. [email or web address] Jessie [address], [place], [address], 05/16/2025 13:34:02 05/15/20 25 05/15/2025 US, obste tric, follo w-up No observ ation record ed. [facility] [address], [place], [address], 05/15/2025 12:11:50 Result Notes None recorded. Problems Name Problem SNOMED Code Status Onset Date Resolution Date Notes Provider Name and Address Organization Details Recorded Time Pregnanc y 04282419 Active 2024 DEIDRA good, [facility] 14:24:59 Disorder of left sciatic nerve 99941244936 9100 Active 2024 given recommend ations - has PT Camilo Coyle MD [address], [place], [address], [facility] 10:43:32 Problem Notes None recorded. Procedures Surgical History Date Name Laterality Status Provider Name and Address Organization Details Recorded Time 09/11/19 25 Dilation and Curettage completed Yola Tran [facility] 12/16/2024 15:13:35 07/08/20 24 Date of Last Pap Smear completed Kandis Lopez [facility] 07/08/2024 17:23:54 12/07/19 23 IUD Removal completed Karissa Bell [facility] [address], [place], [address], [facility] 12/06/2022 09:18:40 07/17/19 20 laser assisted in situ keratomileusis completed Kandis Lopez [facility] 11/06/2021 10:24:09 07/17/19 08 extraction of wisdom tooth completed Kandis Lopez [facility] 11/06/2021 10:24:51 07/17/19 00 Tonsillectomy completed Kandis Lopez [facility] 11/06/2021 10:24:22 07/17/18 96 myringotomy and insertion of tympanic ventilation tube completed Kandis Lopez [facility] 11/06/2021 10:25:27 07/17/18 95 myringotomy and insertion of tympanic ventilation tube completed Kandis Lopez [facility] 11/06/2021 10:25:24 Imaging Results None recorded. Procedure Notes None recorded. Medical Equipment None [...] Not Available Miralax 17 gram/dose oral powder 09/23 completed Not Available Not Available Not Available tizanidin e 2 mg tablet 12/16 completed Not Available Not Available Not Available [...] triamcino lone acetonide 0.1 % topical cream 12/16 completed Not Available Not Available Not Available calcium [...] tablet Place 4 tablets in the vagina 12/16 completed Not Available Not Available Not Available ibuprofen 400 mg tablet 07/08 completed [...] Prescrib ed Elsewher e: Yes Loca tion: [facility] M odify By: harleen sofia DateTime : 09/10/19 01:45:00 PM Not Available Not Available Not Available naproxen 500 mg tablet 11/28 completed Not Available Not Available Not Available amoxicill in 875 mg-potass ium clavulana te 125 mg tablet 07/08 completed Not Available Not Available Not Available simethico ne 80 mg chewable tablet 12/16 completed Not Available Not Available Not Available cyclobenz aprine 5 mg tablet take 1 tablet by oral route 3 times every day 2024 active Not Available Not Available Not Avai lable ciproflox acin 0.3 %-dexamet hasone 0.1 % [...] Prescrib ed Elsewher e: Yes Loca tion: [facility] odify By: harleen sofia DateTime : 09/10/19 19 01:45:00 PM Not Available Not Available Not Available levocetir izine 5 mg tablet 11/06 completed Not Available Not Available Not Available Atralin 0.05 % topical gel apply by topical route every day to the affected area(s) at bedtime 09/10 completed Prescrib ed Elsewher e: Yes Loca tion: [facility] michel [facility] odify By: harleen horneruntjaylyn DateTime : 03/13/20 15 09:30:00 AM Not Available Not Available Not Available Cepacol Sore Throat (benzocai ne-mentho l) 15 mg-3.6 mg lozenges 07/08 completed Not Available Not Available Not Available melatonin 5 mg capsule 01/24 completed Prescrib ed Elsewher e: Yes [facility]: danette sofia DateTime : 05/09/20 11 03:00:00 PM Not Available Not Available Not Available Vitamin D2 active Not Available Not Available Not Available Multi Vitamin 9 mg iron/15 mL oral liquid 03/13 completed Prescrib ed Elsewher e: Yes Loca tion: [facility] odify By: mariseladical Encount er DateTime : [...] Prescrib ed Elsewher e: Yes Loca tion: [facility] M odtosha By: harleen sofia DateTime : 03/13/20 15 09:30:00 AM Not Available Not Available Not Available Vitals Date Recorded Body height Body mass index (BMI) Body weight Systolic And Diastolic Provider Name and Address Organization Details Last Updated DateTime 03/20/2025 173.36 cm 34.4 kg/m2 844440.06 g 118/69 mm[Hg] Suzie Kincaid [facility] 03/20/2025 17:03:59 Date Recorded Body weight Systolic And Diastolic Provider Name and Address Organization Details Last Updated DateTime 04/17/2025 685113.1021 g 108/69 mm[Hg] Yola [facility] 04/17/2025 11:58:47 Date Recorded Body weight Systolic And Diastolic Provider Name and Address Organization Details Last Updated DateTime 05/15/2025 312531.38871 g 117/69 mm[Hg] Yola [facility] 05/15/2025 10:15:50 Social History Question Answer Notes LastModified by Organizat ion Details LastModified Time Tobacco Smoking Status Never Smoker Kandis good [facility] 11/06/2021 10:17:47 Do You Have An Advance Directive? No [email or web address] Information n ot available 11/06/2021 Are You Blind Or Do You Have Difficulty Seeing? No [email or web address] Information n ot available 11/06/2021 What Is Your Level Of Caffeine Consumption? Moderate [email or web address] Information not available 11/06/2021 In The 14 Days Before Symptom Onset, Have You Had Close Contact With A Laboratory-confirm ed COVID-19 While That Case Was Ill? No Information n ot available 11/06/2021 In The 14 Days Before Symptom Onset, Have You Had Close Contact With A Person Who Is Under Investigation For COVID-19 While That Person Was Ill? No Information not available 11/06/2021 Have You Been To An Area Known To Be High Risk For COVID-19? No [email or web address] Information not available 11/06/2021 Are You Deaf Or Do You Have Serious Difficulty Hearing? No [email or web address] Information not available 11/06/2021 What Type Of Diet Are You Following? REGULAR [email or web address] Information n ot available 11/06/2021 What Is The Highest Grade Or Level Of School You Have Completed Or The Highest Degree You Have Received? [id number] [email or web address] Information not available 11/06/2021 Are There Any Guns Present In Your Home? Yes [email or web address] Information not available 11/06/2021 Have You Ever Been Counseled For Unhealthy Alcohol Use? No [email or web address] Information not available 11/06/2021 Do You Use Your Seat Belt Or Car Seat Routinely? Yes [email or web address] Information not available 11/06/2021 Do You Have Smoke And Carbon Monoxide Detectors In Your Home? Yes [email or web address] Information not available 11/06/2021 How Much Tobacco Do You Smoke? No Information not available 11/06/2021 Do You Use Sunscreen Routinely? No [email or web address] Information not available 11/06/2021 Has Tobacco Cessation Counseling Been Provided? No [email or web address] Information not available 11/06/2021 Have You Used IV Drugs? No [email or web address] Information not available 11/06/2021 Do You Have Difficulty Walking Or Climbing Stairs? No Information not available 11/06/2021 Sex: Unknown Functional Status Question Answer Note LastModified by Organizat ion Details LastModified Time Do you use any illicit or recreational drugs? No [email or web address] Information not available 11/06/2021 Do you or have you ever used any other forms of tobacco or nicotine? No [email or web address] Information not available 11/06/2021 What is your level of alcohol consumption? Occasional [email or web address] Information not available 11/06/2021 Are you able to walk independently without assistance or assistive devices? YESWOREST [email or web address] Information not available 11/06/2021 Are you able to care for yourself independently? 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 No [email or web address] Information not available 11/06/2021 What is your exercise level? Occasional [email or web address] Information not available 11/06/2021 Mental Status Question Answer Note LastModified by Organization D etails LastModified Time Do you feel stressed (tense, restless, nervous, or anxious, or unable to sleep at night)? [id number] [email or web address] Information not available 07/08/2024 Family History Relationship Description Onset Age of this Age Resolved Age Notes LastModified by Organization Details LastModified Time Maternal Grandmother Hypertensive disorder [email or web address] Not available 2019 11:37:20 Maternal Grandmother Diabetes mellitus [email or web address] Not available 2019 11:37:29 Maternal Grandmother Hypercholest erolemia [email or web address] Not available 2019 11:37:35 Maternal Grandmother Malignant neoplasm of breast [email or web address] Not available 11/06 10:23:14 Mother Diabetes mellitus [email or web address] Not available 2019 11:37:29 Mother Disorder of thyroid gland [email or web address] Not available 2019 11:37:42 Paternal Grandfather Alcoholism [email or web address] Not available 11:41:25 Maternal Aunt Malignant neoplasm of pancreas [email or web address] Not available 2024 11:41:25 Maternal Aunt Diabetes mellitus [email or web address] Not available 11/06 10:23:41 Father Malignant neoplasm of skin [email or web address] Not available 2024 11:41:26 Notes:Maternal aunt: Diabete s mellitus, Pancreatic Cancer Maternal grandfather: Diabetes mellitus Maternal grandmother: Cancer, breast, Diabetes mellitus Medical History Condition Response Allergies (Food, seasonal, environmental ) Y Other Y Breast Cancer N Drug/Latex Allergies/Reactions [...] Gynecological History Statement/Question Response Abnormal Pap N Flow Light Date of Last Mammogram Date of LMP 10/18/2024 N Was last menstrual period normal N STIs/STDs N HPV Vaccine Y Duration of Flow (days) 7 Current Control Method Are cycles usually normal Y Sexually Active? Y Menses Monthly Y Date of DEXA bone scan Age of first menstrual cycle 13 Date of Last Pap Smear 07/08/2024 Sexual Problems? N LMP Definite N Obstetrics History GPAL:G 2 P 0 0 1 0 Type Value Spontaneous 1 Living 0 Total 2 Past Encounters Encounter ID Performer Location Encounter Start Date Encounter Closed Date Diagnosis/Indication Diagnosis SNOMED-CT Code Diagnosis ICD10 Code Diagnosis IMO Codes Diagnosis Note [id number] Karissa Bell [facility] [address] [address] 05/01/2020 11:20:49 05/01/2020 13:16:56 Gynecologic examination 72064206 Z01.419 Take Calcium with Vitamin D 1200mg [...] Wants pap updated. Declines need std screening [id number] Karissa Bell [facility] [address],[place] [address] 12/06/2022 08:48:47 12/06/2022 09:26:01 Removal of intrauterine device 24726765 Z30.432 It was explained that she may [...] n of David Method of Family Planning. [id number] Karissa Bell [facility] [address],[facility] [place] [address] 11/06/2021 10:00:48 11/06/2021 10:45:30 Pain in pelvis 02120798 R10.2 Today we agreed to a round of clindamyci n for inflammati on in area of pelvis possibly due to a resolving ovarian cyst as evidenced by free fluid found pelvic US which was completed at [facility] (report viewed on patient Axialhart phone cory). There was no other findings [...] counseling and review of plan of care. [id number] Karissa Bell [facility] [address],[place] [address] 02/10/2022 09:49:03 02/10/2022 17:31:48 Skin irritation 456771026 L30.9 Skin looks like experienci ng some contact dermatitis but uncertain what could've caused it.If not resolved needs to f/u at derm office.Isael l contact with swab results. Time spent in visit is a total of 15 mins with at least 50% of visit consisting of counseling and review of plan of care. [id number] [facility] [address],[place] [address] 11/28/2022 12:42:54 11/28/2022 15:31:17 Gynecologic examination 59896005 Z01.419 Take Calcium with Vitamin D 1200mg [...] Screen na Routine Labs PCP Skin irritation 31044190 7 L30.9 RF sent Use prn [id number] NAYA Cohen [facility] [address] [address] 07/08/2024 09:46:44 07/08/2024 11:43:39 Gynecologic examination 28275032 Z01.419 WWEBC - TTC, continue daily PNVPap [...] advised. Questions answered. Adult heal th examination 753678234 Z00.00 [id number] BEENA RO MD [facility] [address] [address] 08/20/2024 09:31:50 08/20/2024 17:13:16 Missed miscarriage 75177592 O02.1 - US c/w missed miscarriag e at [facility] yesterday, no FHT- denies cramping or bleeding- discussed risks and benefits of expectant vs medical vs surgical management - discussed bleeding precaution s- patient desires medical management , rediscusse d risks of this management options and return precaution s- patient to call after bleeding resolves to schedul hCG draw [id number] BEENA RO MD [facility] [address],[place] [address] 09/24/2024 11:41:18 09/24/2024 12:15:08 Incomplete miscarriage 289871380 O03.4 - s/p attempted medical management of miscarriag e- s/p D&C 09/11 due to retained products and worsening vaginal bleeding- pathology benign- bleeding resolved however still having symptomati c anemia- started PO Fe without improvemen t- Hgb 9.5 1 week post op- will order IV Fe infusion weekly- recheck Hgb/Fe panel following Fe infusions [id number] Camilo Coyle MD [facility] [address],[place] [address] 12/16/2024 14:32:56 12/16/2024 15:06:52 Uterine size for dates discrepancy 134150735 O26.841 Z3A.01 [id number] Camilo Coyle MD [facility] [address],[place] [address] 12/16/2024 14:33:26 12/16/2024 15:46:41 Amenorrhea 81727087 N91.2 [id number] this patient is a 89year-ol d female who presents for amenorrhea . She is a positive test. Ultrasound revealed a 1st trimester gestation. Patient has no complaints . We talked about early care. Talked about genetic screening. We talked about her ultrasound results. We talked about the 12 week ultrasound that has genetic screening components . She was given recommenda tions on exercise, diet, over-the-c ounter medication s. We reviewed her obstetric history. We reviewed her medical history. We reviewed her social history. She will begin routine care at her next visit. sleep apnea, gerd, depression [id number] Camilo Coyle MD [facility] [address],[place] [address] 12/18/2024 15:02:36 12/18/2024 15:33:45 Threatened miscarriage 26554761 O20.0 Z3A.01 [id number] BEENA RO MD [facility] [address],[place] [address] 12/31/2024 15:03:20 12/31/2024 15:31:24 [id number] MD Paulette WILSON [address],[place] [address] 01/28/2025 13:47:46 01/28/2025 14:29:49 screening 492065358 Z36.82 Z3A.12 [id number] MD Paulette WILSON [address] [address] 01/28/2025 13:48:04 01/28/2025 15:29:36 screening 422992154 Z36.89 Genetic in vestigation procedure 37987225 Z31.430 Gestation period, 12 weeks 73881788 Z3A.12 [id number] MD Paulette Abel [address],[place] [address] 02/27/2025 14:59:58 02/27/2025 16:17:05 Second trimester 71520085 Z34.02 [id number] MD Paulette Abel [address],[place] [address] 03/20/2025 15:50:33 03/20/2025 17:14:58 screening for malformation 087639633 Z36.3 Z3A.20 0560462876 [id number] MD Paulette Abel [address] [address] 03/20/2025 15:50:47 03/20/2025 17:26:46 care status 573597259 Z34.82 [id number] MD Paulette Abel [address],[place] [address] 04/17/2025 09:57:01 04/17/2025 11:34:31 anatomy study 215283476 Z36.2 Z3A.24 5008630127 [id number] MD Paulette Abel [address],[place] [address] 04/17/2025 09:58:33 04/17/2025 12:38:14 care status 414606076 Z34.82 [id number] Camilo Coyle MD [facility] [address] [address] 05/15/2025 09:26:09 05/15/2025 10:12:43 anatomy study 313411878 Z36.2 Z03.74 Z3A.28 [id number] Camilo Coyle MD [facility] [address] [address] 05/15/2025 09:26:24 05/15/2025 10:46:08 care status 773586757 Z34.83 [id number] Health Concerns Section Related Observation LastModified by Organization Detai ls LastModified Time None Recorded Concern Status LastModified by Organization Details LastModified Time None Recorded Advance Directives Directive N: Payers Insurance Date Sequence Insurance Name Policy Number Policy Rose Covered Member ID Rose Member ID Guarantor Name 12/13/2024 1 [employer] - [employer] - [employer]IME () Karishma Ocampo [id number] Karishma Ocampo 05/12/2025 1 WEST - [employer] - [employer] ( - PPO) Karishma Ocampo [id number] Karishma Ocampo 09/23/2024 1 EAST - [employer] () Karishma Ocampo [id number] Karishma Ocampo Notes Date Note Type Note Provider Name and Address Organization Details Recorded Time 03/20/2025 text/html Generic HPI TemplateReported by Patient Camilo Coyle MD [address], [place], [address], [facility] 03/20/2025 17:24:49 04/17/2025 text/html Generic HPI TemplateReported by Patient Camilo Coyle MD [address], [place], [address], [facility] 04/17/2025 12:34:21 05/15/2025 text/html Generic HPI TemplateReported by Patient Camilo Coyle MD [address], [place], [address], [place] [facility] 05/15/2025 10:45:05 OBGyn Episode Ob Episode Information Episode Created Date Number of Fetuses Patient Bloodtype Patient rh Status Prepregnancy Weight lbs Domestic Partner Domestic Partner Phone Father Name Speech Therapy Teacher Status 01/29/20 25 1 O Negative 225 OPEN Fetus Data First Name Last Name Admitted to NICU Weight (g) Sex Living Outcome Pediatric Complications Fetus ID Race Codes Race Delivery Type [id number] Problems Problem Notes Pelvic /pubic pain PT Problem Name Start Date End Date Resolution Snomed Code Not e Disorder of left sciatic nerve 03/20/2025 [id number] given recom mendations - has PT Varinder Calculation Initial Varinder Date Initial Exam Date Initial Exam Provider Initial Ultrasound Date Last Menstrual Period Date Ultra Sound Weeks Gestation 08/07/2025 01/28/2025 01/28/2025 10/18/2024 12 Eighteen To Twenty Week Varinder Update Ultra Sound Date Fundal Height At Umbil Quickening Date Ultra Sound Latest Weeks Gestation Final Varinder Confirmed By Final Varinder Confirmed Date Final Varinder Date Ultra Sound Latest Days Gestation 05/15/20 25 28 07/25/19 26 2 Pre- Flowsheet Flowsheet Date 01/28/2025 Arroyo Score Blood Edema Fundus Height Fundus Units Glucose Ketones Leukocytes Nitrite Labor Signs Protein Cervic Dilation Cervic Effacement Cervic Station Type Weight in lbs Pre/Post Dialysis Refused BP Diastolic BP Location Tested BP Systolic BP Type Fetus Heart Rate Present Fetus Movement Comments Flowsheet Date 01/28/2025 Arroyo Score Blood Edema Fundus Height Fundus Units Glucose Ketones Leukocytes Nitrite Labor Signs Protein Cervic Dilation Cervic Effacement Cervic Station neg none Type Weight in lbs Pre/Post Dialysis Refused BP Diastolic BP Location Tested BP Systolic BP Type Fetus Heart Rate Present A Present Fetus Movement A No Comments Patient presents to [facility] care. complicated by hx of miscarriage in her last , requiring D&C after failed medical management. otherwise uncomplicated. No nausea or cramping. NT/NB wnl today, desires NIPT. Will draw today with new OB labs. RTC 4 weeks for routine care. Flowsheet Date 02/27/2025 Arroyo Score Blood Edema Fundus Height Fundus Units Glucose Ketones Leukocytes Nitrite Labor Signs Protein Cervic Dilation Cervic Effacement Cervic Station Type Weight in lbs Pre/Post Dialysis Refused Weight 221.131019855488 BP Diastolic BP Location Tested BP Systolic BP Type 70 L arm 108 sitting Fetus Heart Rate Present A 143 Fetus Movement Comments no complaints, no problems, routine care, no contractions, no vaginal bleeding, no loss of fluid, no cramping Flowsheet Date 03/20/2025 Arroyo Score Blood Edema Fundus Height Fundus Units Glucose Ketones Leukocytes Nitrite Labor Signs Protein Cervic Dilation Cervic Effacement Cervic Station Type Weight in lbs Pre/Post Dialysis Refused BP Diastolic BP Location Tested BP Systolic BP Type Fetus Heart Rate Present Fetus Movement Comments Flowsheet Date 03/20/2025 Arroyo Score Blood Edema Fundus Height Fundus Units Glucose Ketones Leukocytes Nitrite Labor Signs Protein Cervic Dilation Cervic Effacement Cervic Station Type Weight in lbs Pre/Post Dialysis Refused Weight 228.389609092636 BP Diastolic BP Location Tested BP Systolic BP Type 69 L arm 118 sitting Fetus Heart Rate Present Fetus Movement A Yes Comments complaining of sciatic nerve pain on the left side -given recommendation, otherwise,no complaints, no problems, routine care, no contractions, no vaginal bleeding, no loss of fluid, no cramping Flowsheet Date 04/17/2025 Arroyo Score Blood Edema Fundus Height Fundus Units Glucose Ketones Leukocytes Nitrite Labor Signs Protein Cervic Dilation Cervic Effacement Cervic Station Type Weight in lbs Pre/Post Dialysis Refused BP Diastolic BP Location Tested BP Systolic BP Type Fetus Heart Rate Present Fetus Movement Comments Flowsheet Date 04/17/2025 Arroyo Score Blood Edema Fundus Height Fundus Units Glucose Ketones Leukocytes Nitrite Labor Signs Protein Cervic Dilation Cervic Effacement Cervic Station Type Weight in lbs Pre/Post Dialysis Refused 230.268450835125 BP Diastolic BP Location Tested BP Systolic BP Type 69 L arm 108 sitting Fetus Heart Rate Present Fetus Movement A Yes Comments marked left lower quadrant p ain that radiates down her leg. Treated with Tylenol and Flexeril. She is icing it. She is limiting her activity. She has had some improvement. She was working 12 hour shifts. Telemetry shifts to 8 hours.6 Flowsheet Date 05/15/2025 Arroyo Score Blood Edema Fundus Height Fundus Units Glucose Ketones Leukocytes Nitrite Labor Signs Protein Cervic Dilation Cervic Effacement Cervic Station Type Weight in lbs Pre/Post Dialysis Refused BP Diastolic BP Location Tested BP Systolic BP Type Fetus Heart Rate Present Fetus Movement Comments Flowsheet Date 05/15/2025 Arroyo Score Blood Edema Fundus Height Fundus Units Glucose Ketones Leukocytes Nitrite Labor Signs Protein Cervic Dilation Cervic Effacement Cervic Station Type Weight in lbs Pre/Post Dialysis Refused [id number] BP Diastolic BP Location Tested BP Systolic BP Type 69 L arm 117 sitting Fetus Heart Rate Present A 145 Fetus Movement A Yes Comments no complaints, no problems, routine care, no contractions, no vaginal bleeding, no loss of fluid, no cramping Menstrual History Last Menstrual Date Menses Monthly On Bcp Conception Prior Menses Frequency Hcg Plus Date Menarche Onset Age 0410/18/2024 Delivery Information Delivery Date Delivery Type Labor Anesthesia Weeks Gestation Incision Type Labor Labor Length Hrs Delivered By Post Complications Tubal Sterilization Discharge Date Comments Discharge Information Feeding Method Contraceptive Method Maternal HG B and HCT Levels Ob Episode Information Episode Created Date Number of Fetuses Patient Bloodtype Patient rh Status Prepregnancy Weight lbs Domestic Partner Domestic Partner Phone Father Name Speech Therapy Teacher Status 09/25/19 25 1 CLOSED Fetus Data First Name Last Name Admitted to NICU Weight (g) Sex Living Outcome Pediatric Complications Fetus ID Race Codes Race Delivery Type , [place]ont[place] ous [id number] Varinder Calculation Initial Varinder Date Initial Exam Date Initial Exam Provider Initial Ultrasound Date Last Menstrual Period Date Ultra Sound Weeks Gestation 0 Eighteen To Twenty Week Varinder Update Ultra Sound Date Fundal Height At Umbil Quickening Date Ultra Sound Latest Weeks Gestation Final Varinder Confirmed By Final Varinder Confirmed Date Final Varinder Date Ultra Sound Latest Days Gestation 0 0 Menstrual History Last Menstrual Date Menses Monthly On Bcp Conception Prior Menses Frequency Hcg Plus Date Menarche Onset Age Delivery Information Delivery Date Delivery Type Labor Anesthesia Weeks Gestation Incision Type Labor Labor Length Hrs Delivered By Post Complications Tubal Sterilization Discharge Date Comments 5 suction D&C Discharge Information Feeding Method Contraceptive Method Maternal HG B and HCT Levels
[2025-05-22] MEDS: RHO(D) IMMUNE GLOBULIN 300 MCG/2 ML SYRINGE IM (13:43)
== END 2025-05-22 11:00 | disposition home or self-care (01) ==
LOC: ANHLAB 10:11
PROVIDERS: Visit Provider Obstetrics & Gynecology
DX: Z11.4 Encounter for screening for human immunodeficiency virus [HIV] (principal); Z11.3 Encounter for screening for infections with a predominantly sexual mode of transmission; O36.0130 Maternal care for anti-D [Rh] antibodies, third trimester, not applicable or unspecified; Z3A.00 Weeks of gestation of pregnancy not specified
CPT/HCPCS: 36415; 82947; 85014; 85018; 85461; 86703; 86850; 86900; 86901; 90384; 96372; G0432; J2790